=== PATIENT | female | born 1935 | race Caucasian/White ===

== ENCOUNTER → 2023-07-21 10:49 | Outpatient (REF) | payer MEDICARE, OTHER, SELFPAY ==
[2023-07-21 12:07] LABS: % Basophils 0.9 % (0-2); % Eosinophils 1.7 % (0-6); % Immature Granulocytes 0.4 % (0-0.5); % Lymphocytes 27.4 % (20.5-51.1); % Neutrophils 57.6 % (42.2-75.2); Absolute Basophils 0.1 10^3/uL (0-0.2); Absolute Eosinophils 0.1 10^3/uL (0-0.7); Absolute Lymphocytes 1.9 10^3/uL (1.2-3.4); Absolute Monocytes 0.8 10^3/uL (0.1-0.6); Hematocrit 40.8 % (37.0-47.0); Hemoglobin 14.1 g/dL (12.0-16.0); Mean Corp Hgb Conc. 34.6 g/dL (33.0-37.0); Mean Corpuscular Volume 95.6 fL (81.0-99.0); Mean Platelet Volume 10.8 fL (7.4-10.4); Nucleated Red Blood Cells % 0 %; Platelet Count 268 10^3/uL (130-400); Red Blood Cell Count 4.27 10^6/uL (4.20-5.40); White Blood Cell Count 6.9 10^3/uL (4.8-10.8)
[2023-07-21 12:44] LABS: ALT (SGPT) 27 U/L (0-35); AST (SGOT) 36 U/L (14-36); Albumin 4.3 g/dl (3.5-5.0); Alkaline Phosphatase 82 U/L (38-126); Blood Urea Nitrogen 16 mg/dl (7-17); Calcium 10.5 mg/dl (8.4-10.2); Carbon Dioxide 29 mmol/L (22-30); Chloride 102 mmol/L (98-107); Glucose 95 mg/dl (70-99); Potassium 4.5 mmol/L (3.5-5.1); Sodium 135 mmol/L (135-145); Total Bilirubin 0.6 mg/dl (0.2-1.3); Total Cholesterol 247 mg/dl (50-199); Total Protein 6.8 g/dl (6.3-8.2); Triglyceride 140 mg/dl (10-149); Very Low Density Lipoprotein 28 mg/dl (0-30); eGFR 54.87
[2023-07-21 12:54] LABS: HDL Cholesterol 117 mg/dl; LDL Cholesterol, Calculated 102 mg/dl
[2023-07-21 13:18] LABS: Free T4 1.32 ng/dl (0.78-2.19); Vitamin D, 25-OH*** 84.6 ng/mL (30-80)
[2023-07-21 13:31] LABS: TSH 3.33 uIU/ml (0.47-4.68)
[2023-07-21 14:08] LABS: Urine Albumin Negative (Neg - Trace); Urine Bilirubin Negative (Negative); Urine Character Clear (Clear); Urine Color Yellow; Urine Glucose Negative (Negative); Urine Ketone Negative (Negative); Urine Leukocyte Negative (Negative); Urine Nitrite Negative (Negative); Urine Occult Blood Negative (Negative); Urine Urobilinogen Negative (Neg - 1+)
== END ==
LOC: REG 10:49
PROVIDERS: ATTENDING PHYSICIAN Internal Medicine Geriatric Medicine
DX: E55.9 Vitamin D deficiency, unspecified (principal); E78.2 Mixed hyperlipidemia; E03.8 Other specified hypothyroidism; E21.3 Hyperparathyroidism, unspecified; M17.11 Unilateral primary osteoarthritis, right knee; G62.9 Polyneuropathy, unspecified; Z86.39 Personal history of other endocrine, nutritional and metabolic disease
CPT/HCPCS: 36415; 80053; 80061; 81003; 82306; 84439; 84443; 85025

== ENCOUNTER 2023-11-19 23:59 | Observation (INO) | payer MEDICARE, OTHER, SELFPAY ==
[2023-11-19 19:51] VITALS: BP 116/68
--- NOTE | 2023-11-19 20:22 | ED.GENMED ---
History of Present Illness
General
Chief Complaint: Change in Mental Status
Time Seen by Provider: 11/19/23 20:07
Travel History
Have you had any contact with someone who has COVID-19?: No
Do you have any symptoms of coronavirus? Fever > 100 degrees, chills, cough, shortness of breath, sore throat, loss of taste or smell, muscle aches, or headache?: No
History of Present Illness
History of Present Illness:
88-year-old female with history of neuropathy presents to the emergency department for evaluation of recurrent bouts of confusion that began yesterday. Patient and her state that they were traveling in [place] yesterday, while in the
hotel room the patient had a sudden onset of confusion, did not know her whereabouts of the events of the day. She did not ask repetitive questions and seemed to be able to be oriented by her with some degree of education. She seen normal
last night and this morning however again this afternoon had an abrupt period of confusion where she forgot certain life events, her whereabouts, and names of close friends. On arrival to the emergency department the symptoms appear to have fully
resolved. She denies any occultly speaking or difficulty word finding, denies any extremity weakness or new paresthesias.
Past History
Past History
ED Past Medical History: Other (chronic neuropathy right leg, under care of neurology study in [place].)
Social History
Tobacco: Non-smoker
Personal:
Living: with family
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
Review of Systems
Review of Systems
Allergies reviewed?: Yes
All Other Systems: ROS reviewed and negative except as documented in HPI and ROS
Phy Exam
Physical Exam
Physical Exam:
GEN: Well appearing, NAD, WDWN
HEENT: Oral mucosa moist, no scleral icterus, no nasal congestion
Cardiac: Regular rate
Lung: No respiratory distress, no tachypnea
MSK: No gross deformity or injuries
Skin: Good color, no pallor or jaundice, no rashes
Neuro: AO x3; CN II-XII grossly intact. BUE strength 5/5 in all patel, sensation intact and symmetric. BLE strength 5/5 in all patel, sensation intact and symmetric. Normal [id number] and rhzh-fg-[id number]. Appropriate memory and recall
Psych: Calm, cooperative
Course
Orders/Labs/Results
Orders:
Orders
11/19/23 20:21
CT Head W/o Iv Contrast Urgent
Comment:
Reason For Exam: mental status change
11/19/23 20:22
Electrocardiogram (*1) Urgent
Reason for Study: TIA/Stroke
EKG- Treatment ONCE
11/19/23 20:29
Complete Blood Count/With Diff Urgent
Comprehensive Metabolic Panel Urgent
11/19/23 21:28
Urinalysis Reflex To Culture Urgent
Date Specimen was Collected: 11/19/23
Time Specimen was Collected: 21:26
Urine Microscopic Reflex Cult Urgent
11/19/23 23:14
Aspirin 325 mg PO NOW STA
Abnormal Lab Results
11/19/23 11/19/23
20:29 21:28
RBC 4.03 L 10^6/uL
(4.20-5.40)
Hct 36.7 L %
(37.0-47.0)
MCH 32.5 H pg
(27.0-31.0)
Absolute Neuts (auto) 7.4 H 10^3/uL
(1.4-6.5)
Absolute Monos (auto) 1.2 H 10^3/uL
(0.1-0.6)
Lymphocytes % 14.2 L %
(20.5-51.1)
Monocytes % 11.4 H %
(1.7-9.3)
Sodium 134 L mmol/L
(135-145)
BUN 19 H mg/dl
(7-17)
Glucose 111 H mg/dl
(70-99)
Calcium 11.0 H mg/dl
(8.4-10.2)
Urine Ketones Trace A
(Negative)
Leukocyte Esterase Rfl Trace A
(Negative)
11/19/23 20:29
11/19/23 20:29
Vital Signs
Initial and Last Documented VS:
Initial Vital Signs
Pulse Resp BP Pulse Ox
60 22 116/68 100
11/19/23 19:51 11/19/23 19:51 11/19/23 19:51 11/19/23 19:51
Last Documented Vital Signs
Pulse Resp BP Pulse Ox
63 20 127/70 97
11/19/23 22:45 11/19/23 22:45 11/19/23 22:00 11/19/23 22:45
MDM/Problems Addressed
MDM/Problems Addressed:
88-year-old female presents with waxing waning periods of profound confusion. Per she has not had any signs of cognitive decline and these changes were rather sudden in nature. She did not have repetitive questioning and the symptoms did
not persist for 24 hours suggesting transient global amnesia is not a likely cause. She does endorse significant life stressors however given the waxing waning nature of this and her advanced age, coupled with findings of a chronic infarct on CT
scan, she will require further neurologic evaluation to definitively rule in or rule out CVA/TIA. Case was discussed with neurology who recommends loading dose of aspirin and admission for MRI
Comment
Comment:
EKG independently interpreted by me shows a normal sinus rhythm with a right bundle branch block, no ST changes suspicious for ischemia
*Critical Care Note
Total Time (30-74mins, 75-104mins- exclusive of procedures): Not Applicable
ED Attending Note
-
Portions of this chart may have been created with voice recognition software.� Occasional wrong word or��sound alike� substitutions may have occurred due to the inherent limitations of voice recognition software.
Discharge Plan
Departure
Patient Disposition: Admit
Date of Disposition: 11/19/23
Time of Disposition: 23:16
Admit to: Telemetry
Presentation/result/management discussed w/ accepting MD/DO: Hospitalist
Discharge Problem:
Transient ischemic attack (TIA)
Prescriptions:
No Action
No Current Medications
0
Referrals:
Kwan Lincoln MD [Family Provider] -
Interventions
Interventions:
*Risk Screen - Suicide Last Done: 11/19/23 19:51
*General Assessment Last Done: 11/19/23 20:32
*Neglect/Abuse Screening Last Done: 11/19/23 19:51
ED- Fall Risk Assessment Last Done: 11/19/23 20:31
*ED COVID-19 Vaccine History Last Done: 11/19/23 20:32
ED- Neurological Assessment Last Done: 11/19/23 20:32
ED Swallowing Screen Last Done: 11/19/23 23:15
Discharge Date and Time
Print Language: UPPER SORBIAN
[2023-11-19 20:31] VITALS: BMI 20.9
[2023-11-19 20:35] LABS: % Basophils 0.2 % (0-2); % Eosinophils 0.1 % (0-6); % Immature Granulocytes 0.3 % (0-0.5); % Lymphocytes 14.2 % (20.5-51.1); % Monocytes 11.4 % (1.7-9.3); % Neutrophils 73.8 % (42.2-75.2); Absolute Lymphocytes 1.4 10^3/uL (1.2-3.4); Absolute Monocytes 1.2 10^3/uL (0.1-0.6); Absolute Neutrophils 7.4 10^3/uL (1.4-6.5); Hematocrit 36.7 % (37.0-47.0); Hemoglobin 13.1 g/dL (12.0-16.0); Mean Corp Hgb Conc. 35.7 g/dL (33.0-37.0); Mean Corpuscular Hgb 32.5 pg (27.0-31.0); Mean Corpuscular Volume 91.1 fL (81.0-99.0); Mean Platelet Volume 9.6 fL (7.4-10.4); Nucleated Red Blood Cells % 0 %; Platelet Count 284 10^3/uL (130-400); Red Blood Cell Count 4.03 10^6/uL (4.20-5.40); Red Cell Dist. Width 12.6 % (11.5-14.5); White Blood Cell Count 10.1 10^3/uL (4.8-10.8)
[2023-11-19 20:50] LABS: ALT (SGPT) 26 U/L (0-35); AST (SGOT) 34 U/L (14-36); Albumin 4.3 g/dl (3.5-5.0); Alkaline Phosphatase 92 U/L (38-126); Blood Urea Nitrogen 19 mg/dl (7-17); Carbon Dioxide 26 mmol/L (22-30); Chloride 100 mmol/L (98-107); Estimated Creatinine Clearance 41 ml/min; Glucose 111 mg/dl (70-99); Potassium 4.4 mmol/L (3.5-5.1); Sodium 134 mmol/L (135-145); Total Bilirubin 0.5 mg/dl (0.2-1.3); eGFR > 60.00
[2023-11-19 21:35] LABS: Urine Albumin Trace (Neg - Trace); Urine Bilirubin Negative (Negative); Urine Character Clear (Clear); Urine Color Yellow; Urine Glucose Negative (Negative); Urine Ketone Trace (Negative); Urine Leukocyte Trace (Negative); Urine Nitrite Negative (Negative); Urine Occult Blood Negative (Negative); Urine Urobilinogen Negative (Neg - 1+)
[2023-11-19 21:40] VITALS: BP 124/61
[2023-11-19 21:46] LABS: Urine Red Blood Cell None Seen /HPF (0-2)
[2023-11-19 22:00] VITALS: BP 127/70
[2023-11-19 23:00] VITALS: BP 105/57
[2023-11-19] MEDS: ASPIRIN 325 MG PO (23:26)
--- NOTE | 2023-11-19 23:44 | HPS.HSE ---
Family Physician
-
Family Physician: Kwan Lincoln
Chief Complaint
-
TIA symptoms
History of Present Illness
88-year-old woman comes in for eval of recurrent bouts of confusion that began yesterday. This afternoon she had an abrupt period of confusion where she forgot certain life events, her whereabouts, and names of close friends. At the ED, her
symptoms appear to have fully resolved. She denies any current difficulty in speaking or difficulty word finding, denies any extremity weakness or new paresthesias. At the time of my interview she was at baseline.
Medical History
Past Medical History
Past Medical History: Reports Other
Additional Past Medical History:
chronic neuropathy right leg
Primary osteoarthritis of right knee
Peripheral neuropathy
Iliotibial band syndrome, right leg
Vitamin D deficiency, unspecified
Closed fracture of right tibial plateau, initial encounter
Other specified hypothyroidism
rochanteric bursitis, right hip
Tendinitis involving right hip abductors
Parathyroid hormone excess
Mixed hyperlipidemia
Past Surgical History: Reports None
Social History
Tobacco: Non-smoker
Alcohol: Occasional
Drug: None
Personal:
Living: With Family
Employment: Retired
Family History
Family History: Not pertinent
Allergies / Home Medications
Allergies reflects when Allergies were last updated in [facility].
Home Medications with original date entered in [facility]
Allergy/Medication List:
Allergies
Allergy/AdvReac Type Severity Reaction Status Date / Time
No Known Allergies Allergy Verified 11/19/23 19:56
Home Medications
No Meds [No Current Medications] 11/19/23
Review of Systems
-
History Source: Patient
A 12 point ROS was completed and negative except as noted: Yes
Physical Exam
Vital Signs
Vital Signs
Pulse Resp BP Pulse Ox
63 20 127/70 97
11/19/23 22:45 11/19/23 22:45 11/19/23 22:00 11/19/23 22:45
Physical Exam
General: Well Developed, Well Nourished, No Apparent Distress, Comfortable and Conversant
HEENT: NormoCephalic, Moist mucous membranes, Atraumatic, [place] Conjunctivae, Nose Appears Normal and Ears Appear Normal
Respiratory: Clear
Cardiac: S1/S2 and Regular Rhythm
GI: Soft, Non Tender and Non Distended
Musculoskeletal: No Clubbing, No Cyanosis and No Edema
Skin: Warm and Dry; No Rash or Jaundice
Neuro: Awake, Alert, Oriented and AO x 3
Psych: Calm
Laboratory Results
-
11/19/23 20:29
11/19/23 20:29
Laboratory Results
Total Bilirubin 0.5 mg/dl (0.2-1.3) 11/19/23 20:29
AST 34 U/L (14-36) 11/19/23 20:29
ALT 26 U/L (0-35) 11/19/23 20:29
Alkaline Phosphatase 92 U/L (38-126) 11/19/23 20:29
Data Reviewed
-
Lab Data: Labs Reviewed by me
Impression/Plan
-
IMPRESSION:
88 woman with probable TIA. 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 No acute intracranial abnormality. Mild hyponatremia of 134.
PLAN:
1. TIA - resolved
Workup per protocol
Neuro consult in am
2. Mild hyponatremia
encourage po intake
Recheck in am
Full code
VCD for DVTp
[2023-11-20] VITALS (8 sets, daily range): BP systolic 112–140; BP diastolic 58–79; PULSE 63; O2SAT 97; BMI 19.4
--- NOTE | 2023-11-20 03:50 | PTCARENOTE ---
Receive pt from ER. Pt alert oriented X3, forgetful at times. Pt assist X1 w/cane to her bed, unsteady. Pt oriented to the room, call collier within reach. at the bedside. Pt on NSR on telemonitor. VSS (T=97.8, HR=63, RR=18, EV=065/64, SpO2=98%
on RA). Pt NIH=0, stroke packet given. Bed alarm in place for pt safety. Will continue to monitor the pt.
[2023-11-20] MEDS: LOW STRENGTH ASPIRIN 81 MG PO (07:31)
--- NOTE | 2023-11-20 08:21 | CON.NEURO4 ---
Consultation - Neurology 4
-
CONSULTING PHYSICIAN: Benjamin Gomes
REFERRING PHYSICIAN: Hospitalist
DICTATED BY: Benjamin Gomes
DATE/TIME OF REQUEST: 11/20/23
DATE/TIME OF CONSULTATION: 11/20/23
Reason for Consultation: Concern for TIA, recurrent confusion
History of Present Illness:
The patient is an 88-year-old woman with a past med history significant only for idiopathic peripheral neuropathy presenting the hospital with short-term memory difficulties which seem to start abruptly on 11/17 in the morning.
Patient had been out in [place] and going to a health and neuropathy clinic which she generally goes to every couple of weeks and had been there for about a week when on Monday morning seem to develop abrupt confusion and short-term memory
difficulties which her witnessed. Patient did not feel like she could notice these memory difficulties but her at bedside, relates that she clearly had difficulty with memory and recent events which included the events of the week,
when their upcoming flight would be, and even had forgotten that a close family friend had passed in the past several weeks.
There was not any apparent auditory or visual hallucination and abnormal movements or loss of consciousness or unusual headaches. No instances like this before. Has been functioning quite well with regard to cognition. Appetite has been okay. No
recent illnesses or new medications.
Past Medical History: Hyperlipidemia, Peripheral neuropathy, Osteoarthritis, tendinitis of right hip
Surgical History: None
Family History: Reviewed and non-contributory
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
Allergies: No known drug allergies
Review of Symptoms:
Patient denies any fever, headache, chest pain, shortness of breath, GI or symptoms.
Physical Exam:
Elderly woman with no head or neck trauma no meningismus eyes are clear oropharynx is clear, neck supple, heart rate regular breathing unlabored abdomen soft nontender no lower extremity edema
Neurologic Examination:
The patient is awake, alert and oriented x 3. Patient obeys multistep commands repeats well names what was good comprehension and fluent speech with no evidence of aphasia. Subtraction from 100 by serial sevens is adequate. Can recall recent
current events of [place] conflict. Knows the current month and able to recall the most recent hol day with some prompting. No evidence of. Copy the cube well and draws a clock very normally.On cranial nerve assessment,
pupils are 3 mm bilateral, round and reactive to light and accommodation. Visual patel are full. Extraocular movements are intact. Facial sensations are intact and bilaterally symmetrical, there is no facial asymmetry. Hearing is intact bilaterally
to normal conversation volume. Tongue palate and uvula are midline. Sternocleidomastoid strengths are full bilaterally. Motor strengths are 5/5 bilateral upper and lower extremities on medical research [place] scale. There is no drift or
involuntary movement noted. Deep tendon reflexes are 2+ bilateral upper and lower extremities and Babinski is absent bilaterally. Sensations of pain, touch, temperature and vibration are intact and bilaterally symmetrical. There was no extinction
noted on double simultaneous stimulation. Coordination is intact by finger to nose bilaterally.
Neuro Imaging:
MRI brain shows a significant amount of ischemic white matter vascular disease without clear lacunar infarct, age related global atrophy, no acute infarct or hemorrhage masses no hydrocephalus
Impressions
1. Suspect this is the earliest development of mild cognitive impairment manifesting with short-term memory difficulty. MRI brain is suggestive of possibility for vascular based cognitive impairment. Duration of symptoms would argue against a
transient global amnesia but this would remain a possibility which would resolve spontaneously and should have a benign course. Patient had also had travel to [place] which makes me wonder if some element of Jet lag played a role here in a
patient with pre-existing mild cognitive impairment. EEG did not suggest nonconvulsive seizure as a cause of her symptoms. Diagnosis of exclusion would be stress or mood based problems that I feel is probably unlikely. Lack of headache, fever,
leukocytosis and normal level of consciousness and fairly good insight and cognitive testing today for short-term memory difficulties would argue against a [employer] infection
2.
3.
4.
Recommendations:
1. Check vitamin B12
2. Start aspirin 81 mg daily and Simvastatin 10 mg daily for vascular health of the brain
3. Would follow up with neurology as outpatient with neuropsychologic testing, consideration for Donepezil and/or Memantine later on
4. No indication for starting anti-seizure medications
Discussed patient care with: Patient and her , hospitalist
--- NOTE | 2023-11-20 09:22 | W.PN.HOSP.TC ---
Today's Communication/Plan
-
Discharge today
Assessment / Plan
Assessment / Plan
Physical Exam
General: Not in acute distress
HEENT: Normocephalic
Respiratory: Clear
Cardiac: S1/S2 and Regular Rhythm
GI: Soft, Non Tender and Non Distended
Musculoskeletal: No Clubbing, No Cyanosis and No Edema
Skin: Warm and Dry; No Rash or Jaundice
Neuro: Awake, Alert, Oriented and AO x 3. Cranial nerves 2 through 12 grossly intact bilaterally. Strength and sensation grossly intact bilaterally.
Psych: Calm

Assessment/Plan
IMPRESSION:
-88 woman with possibility for vascular based cognitive impairment, possible (but less likely to be) transient global amnesia
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 No acute intracranial abnormality. Mild hyponatremia of 134.
-MRI brain showed a significant amount of ischemic white matter vascular disease without clear lacunar infarct, age related global atrophy, no acute infarct or hemorrhage masses no hydrocephalus
-Neurology consulted, recommendations appreciated
-EEG unremarkable
-Continue aspirin 81 mg daily and simvastatin 10 mg daily
-Follow-up hospital Vitamin B12 level and supplement as needed
-Follow-up with neurology outpatient
Mild hyponatremia -- recheck CBC, BMP and Magnesium with PCP in the next 2 to 3 days
Hyperlipidemia
Peripheral neuropathy
Osteoarthritis
Tendinitis of right hip
Full code
VCD for DVTp
More than 30 minutes spent in discharge including
Final examination of the patient
Summarizing hospital stay
Instructions for continuing care to all relevant caregivers
Preparation of discharge records, prescriptions, and referral forms
Total time spent (in minutes): 42
Anticipated Discharge: Today
Subjective/Interval History
-
Date of Service: November 20, 2023
Patient was seen and examined. She denied any new symptoms or complaints.
Objective Data
-
Vital Signs:
Vital Signs
Temp Pulse Resp BP Pulse Ox
98.4 F 62 18 132/68 99
11/20/23 07:27 11/20/23 07:27 11/20/23 07:27 11/20/23 07:27 11/20/23 07:44
[2023-11-20 09:24] LABS: HDL Cholesterol 93 mg/dl; LDL Cholesterol, Calculated 134 mg/dl; Total Cholesterol 241 mg/dl (50-199); Triglyceride 71 mg/dl (10-149); Very Low Density Lipoprotein 14 mg/dl (0-30)
--- NOTE | 2023-11-20 10:45 | PTOTSP ---
SPEECH THERAPY SWALLOW EVALUATION:
Patient exhibits oropharyngeal swallow grossly WFL at this time. Swallow therapy is not indicated at this time. Recommend Regular texture diet, thin liquids. Meds whole with liquid. General aspiration precautions. Speech therapy to follow for
complete speech/language/cognitive communication evaluation at a later time pending MRI results.
RECOMMEND:
1) Regular texture diet, thin liquids
2) Meds whole with liquid
3) General aspiration precautions
4) Speech therapy to follow for complete speech/language/cognitive communication evaluation
--- NOTE | 2023-11-20 15:02 | CM ---
Patient seen bedside with spouse, initial assessment completed. Patient resides with her spouse in a multiple story home, five steps to enter. Patient has a cane at home, denies VN or SNF. Patient confirms PCP Dr. Lincoln, pharmacy [facility] [place]
on [address] Patient confirms prescription coverage, denies food insecurities at home. CM discussed PT recommendations of outpatient therapy. Patient reports she is very busy, is on the elliptical about three times a week, declines outpatient PT at
this time. [facility] form reviewed, signed, placed in chart. CM will continue to follow for discharge planning needs.
Plan; home with spouse, no needs.
--- NOTE | 2023-11-20 16:11 | EEG.RPT ---
Electroencephalogram Report
Recording
Date of EE11/20/23
Length of EEG recordin minutes
Recording Conditions: Awake and Drowsy
Hyperventilation Performed: No
Photic Stimulation Performed: Yes
Report
GREATER THAN 1 HOUR EEG INTERPRETATION:
Unremarkable EEG for age
CLINICAL CORRELATION:
A normal EEG does not rule out a diagnosis of epilepsy.� If clinical suspicion for seizure persists, a prolonged recording may be warranted.
Clinical correlation is advised.
METHODS:
A 21 channel digitized electroencephalogram (EEG) was performed using the 10/20 international system of electrode placement and one-lead of ECG recorded.
ELECTROENCEPHALOGRAPHER IMPRESSION(S):
Quality of study
Good
Background
There was an unremarkable anterior-posterior voltage gradient of alpha frequency.
With eye opening the background activity changed to a low voltage mixture of frequencies.
There were no significant asymmetries of background activity noted.
Sleep
Drowsiness present
Photic Stimulation
No activation
ECG
Normal sinus rhythm
--- NOTE | 2023-11-20 16:47 | W.DS.TRANS ---
DC Summary - Bike Technician
-
Discharge Instructions:
Discharge Diagnosis/Procedures Possibility for vascular based cognitive
impairment versus possible (but less likely to
be) transient global amnesia
Mild hyponatremia
Hyperlipidemia
Peripheral neuropathy
Osteoarthritis
Tendinitis of right hip
Diet As tolerated
Activity As tolerated
Driving Restrictions No driving
Blood Work Recheck CBC, BMP, Calcium and Albumin and
Magnesium with your primary care provider's
office in the next 2 to 3 days
Instructions:
Stand-Alone Forms:
Changes to Home Medications: Yes
Discharge Medications:
DC Medications w/original date entered in doo
aspirin 81 mg chewable tablet 81 mg PO DAILY #30 tabs 11/20/23
simvastatin 10 mg tablet 10 mg PO DAILY #30 tabs 11/20/23
Home Medication Changes
Aspirin and Simvastatin are new medications.
Pending Results: Yes
Additional Pending Results:
Vitamin B12 level
Total time spent discharging patient (in min): 42
[2023-11-20 17:26] LABS: Vitamin B12 861 pg/ml (239-931)
--- NOTE | 2023-11-23 10:16 | W.DCSUMMARY ---
Discharge Summary
Discharge Data
Date of Admission: 11/19/23
Date of Discharge: 11/20/23
Total time spent discharging patient (in min): 42
-
Pending Results: Yes
Additional Pending Results:
Vitamin B12 level
Hospital Course
88 y/o female who was admitted with worsening short-term memory and confusion, with confusion resolving shortly after presentation to the hospital. Neurology was consulted and MRI brain was done which showed a significant amount of ischemic white
matter vascular disease without clear lacunar infarct, age related global atrophy, no acute infarct or hemorrhage masses no hydrocephalus. Neurology suspected that this is the earliest development of mild cognitive impairment manifesting with
short-term memory difficulty but given MRI brain results it was possible for a vascular-based cognitive impairment, it was also possible (but less likely) patient could have transient global amnesia but but would resolve spontaneously and should
have a benign course. Jet lag given her recent travel was also possible contributor. EEG did not show a nonconvulsive seizure as the cause of her symptoms. Central nervous system infection was unlikely. She was stable for discharge.
Discharge Plan
-
Patient Disposition: Home (Routine Discharge)
Discharge Diagnosis/Procedures: Possibility for vascular based cognitive impairment versus possible (but less likely to be) transient global amnesia
Mild hyponatremia
Hyperlipidemia
Peripheral neuropathy
Osteoarthritis
Tendinitis of right hip
Diet: As tolerated
Activity: As tolerated
Driving Restrictions: No driving
Blood Work: Recheck CBC, BMP, Calcium and Albumin and Magnesium with your primary care provider's office in the next 2 to 3 days
Activity Restrictions/Additional Instructions:
Recheck CBC, BMP, Calcium, Albumin and and Magnesium levels with your primary care provider's office in the next 2 to 3 days
Vitamin B12 level was ordered in the hospital -- please follow-up on those results and have your primary care provider start Vitamin B12 supplementation if needed
Referrals:
Alf Tirado MD [Active] - in three to four weeks (Hospital vascular cognitive impairment follow-up)
Kwan Lincoln MD [Family Provider] - in one to two days
Prescriptions:
New
aspirin 81 mg Tablet,Chewable
81 mg PO DAILY Qty: 30 1RF
simvastatin 10 mg tablet
10 mg PO DAILY Qty: 30 1RF
Discharge Orders:
Discharge Patient (As Directed); Ordered 11/20/23
Ordered By: William Iglesias
Discharge Date and Time
Discharge Date/Time: 11/20/23 18:06
Print Language: GERMAN
== END 2023-11-20 18:06 | disposition home or self-care (01) ==
LOC: 4 EAST ACU 23:59
PROVIDERS: Physician Assistant; ADMITTING PHYSICIAN Internal Medicine; ATTENDING PHYSICIAN Hospitalist; EMERGENCY PHYSICIAN Emergency Medicine; FAMILY PHYSICIAN Internal Medicine Geriatric Medicine; OTHER PHYSICIAN Student in an Organized Health Care Education/Training Program
DX: G31.84 Mild cognitive impairment of uncertain or unknown etiology (principal); G62.9 Polyneuropathy, unspecified; E78.2 Mixed hyperlipidemia; M17.11 Unilateral primary osteoarthritis, right knee; E55.9 Vitamin D deficiency, unspecified; M76.31 Iliotibial band syndrome, right leg; E03.8 Other specified hypothyroidism; E78.5 Hyperlipidemia, unspecified; I08.3 Combined rheumatic disorders of mitral, aortic and tricuspid valves; M76.9 Unspecified enthesopathy, lower limb, excluding foot; E87.1 Hypo-osmolality and hyponatremia; G60.9 Hereditary and idiopathic neuropathy, unspecified; Z86.73 Personal history of transient ischemic attack (TIA), and cerebral infarction without residual deficits
CPT/HCPCS: 70450; 70551; 80053; 80061; 81003; 81015; 82607; 85025; 92610; 93005; 93306; 93880; 95816; 97162; 97166; 99285; G0378

== ENCOUNTER → 2023-11-23 11:26 | Outpatient (REF) | payer MEDICARE, OTHER, SELFPAY ==
[2023-11-23 12:09] LABS: % Basophils 0.5 % (0-2); % Eosinophils 1.6 % (0-6); % Immature Granulocytes 0.3 % (0-0.5); % Lymphocytes 25.2 % (20.5-51.1); % Monocytes 12.8 % (1.7-9.3); % Neutrophils 59.6 % (42.2-75.2); Absolute Eosinophils 0.1 10^3/uL (0-0.7); Absolute Lymphocytes 1.9 10^3/uL (1.2-3.4); Absolute Monocytes 0.9 10^3/uL (0.1-0.6); Absolute Neutrophils 4.4 10^3/uL (1.4-6.5); Hematocrit 39.1 % (37.0-47.0); Hemoglobin 13.4 g/dL (12.0-16.0); Mean Corp Hgb Conc. 34.3 g/dL (33.0-37.0); Mean Corpuscular Hgb 33.9 pg (27.0-31.0); Mean Platelet Volume 10.2 fL (7.4-10.4); Nucleated Red Blood Cells % 0 %; Platelet Count 302 10^3/uL (130-400); Red Blood Cell Count 3.95 10^6/uL (4.20-5.40); Red Cell Dist. Width 12.6 % (11.5-14.5); White Blood Cell Count 7.4 10^3/uL (4.8-10.8)
[2023-11-23 12:58] LABS: ALT (SGPT) 21 U/L (0-35); AST (SGOT) 28 U/L (14-36); Albumin 3.9 g/dl (3.5-5.0); Alkaline Phosphatase 78 U/L (38-126); Blood Urea Nitrogen 15 mg/dl (7-17); Calcium 10.3 mg/dl (8.4-10.2); Carbon Dioxide 29 mmol/L (22-30); Chloride 103 mmol/L (98-107); Glucose 98 mg/dl (70-99); HDL Cholesterol 93 mg/dl; LDL Cholesterol, Calculated 109 mg/dl; Magnesium 2.2 mg/dl (1.6-2.3); Potassium 4.4 mmol/L (3.5-5.1); Sodium 137 mmol/L (135-145); Total Bilirubin 0.7 mg/dl (0.2-1.3); Total Cholesterol 222 mg/dl (50-199); Total Protein 6.3 g/dl (6.3-8.2); Triglyceride 101 mg/dl (10-149); Very Low Density Lipoprotein 20 mg/dl (0-30); eGFR > 60.00
[2023-11-23 15:50] LABS: Lyme Antibody Screen, EIA Negative (Negative)
[2023-11-24 13:36] LABS: Folate > 20.0 ng/ml (2.76-20)
== END ==
LOC: RAD 11:26
PROVIDERS: ATTENDING PHYSICIAN Nurse Practitioner Family
DX: Z09 Encounter for follow-up examination after completed treatment for conditions other than malignant neoplasm (principal); R41.0 Disorientation, unspecified; G45.9 Transient cerebral ischemic attack, unspecified; Z79.899 Other long term (current) drug therapy
CPT/HCPCS: 36415; 80053; 80061; 82746; 83735; 85025; 86618

== ENCOUNTER 2024-01-25 12:22 | Outpatient (RCR) | payer MEDICARE, OTHER, SELFPAY | END 2024-02-02 08:10 | disposition home or self-care (01) | LOC: ROT 12:22 | PROVIDERS: ATTENDING PHYSICIAN Psychiatry & Neurology Neurology; FAMILY PHYSICIAN Internal Medicine Geriatric Medicine | DX: G93.40 Encephalopathy, unspecified (principal); G31.84 Mild cognitive impairment of uncertain or unknown etiology; Z73.6 Limitation of activities due to disability | CPT/HCPCS: 97167; 97530 ==

== ENCOUNTER 2024-02-09 11:15 | Emergency (ER) | payer MEDICARE, BC, SELFPAY ==
[2024-02-09 11:19] VITALS: BP 119/57
--- NOTE | 2024-02-09 11:41 | ED.GENMED ---
History of Present Illness
General
Chief Complaint: Fall
Source: patient
Exam Limitations: none
Time Seen by Provider: 02/09/24 11:40
Nursing documentation reviewed up to this point in time: agreed with
History of Present Illness
History of Present Illness:
This is a 88 y/o female with a PMH of hyperlipidemia, osteoarthritis, presenting to the emergency department today with concerns of right knee pain following a fall. Patient states that she was in her bathroom yesterday walking when she slipped and
fell forward. Patient fell forward and grabbed onto the sink which helped slow her fall. Patient states that she fell onto her right knee. Patient was able to get up okay after the fall and she thought nothing of it. She did not hit her head or
injure her neck. She has no neck pain. She denies any other injuries. Patient states that she was able to walk okay but then did notice some pain in her right knee when weightbearing. Patient states that it became increasingly difficult for her
to bear weight on that side and she feels a bit unsteady on her feet. Patient denies any dizziness or lightheadedness prior to the fall, she has no chest pain or shortness of breath. Patient states that she will occasionally feel a popping in her
knee with walking. Patient denies swelling in her knee. Patient does not take a blood thinner.
Past History
Past History
ED Past Medical History: Other (chronic neuropathy right leg, under care of neurology study in [place].)
Social History
Tobacco: Non-smoker
Personal:
Living: with family
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
Review of Systems
Review of Systems
All Other Systems: ROS reviewed and negative except as documented in HPI and ROS
Phy Exam
Physical Exam
Physical Exam:
General: Patient is well appearing and in no acute distress; non-toxic
Skin: Warm and dry, no rashes or lesions
Head: Normocephalic, atraumatic
Eyes: Sclera non-icteric. EOMs intact. PERRLA.
Neck: No tenderness to palpation of the cervical spine.
Cardiac: Regular rate
Peripheral Vascular: No lower extremity swelling or edema, 2+ dorsalis pedis pulses bilaterally
Pulm: Normal respiratory effort
Musculoskeletal: Full range of motion of bilateral upper and lower extremities. No suprapatellar swelling. Negative Carolyn's sign, negative chuyita's.
Neuro: CN II-XII intact, no focal neurologic deficits. 5 of 5 strength in bilateral upper and lower extremities.
Psychiatric: Appropriate mood and affect.
Course
Orders/Labs/Results
Orders:
Orders
02/09/24 11:51
CR Knee- Right 4 Or More View* Urgent
Comment:
Reason For Exam: knee pain s/p fall
02/09/24 12:15
Pt Eval And Treat Urgent
Activity Level: As Tolerated
02/09/24 12:52
Knee Immobilizer Right-Treatme ONCE
Vital Signs
Initial and Last Documented VS:
Initial Vital Signs
Temp Pulse Resp BP Pulse Ox
98.1 F 80 18 119/57 98
02/09/24 11:19 02/09/24 11:19 02/09/24 11:19 02/09/24 11:19 02/09/24 11:19
Last Documented Vital Signs
Temp Pulse Resp BP Pulse Ox
98.1 F 80 18 119/57 98
02/09/24 11:19 02/09/24 11:19 02/09/24 11:19 02/09/24 11:19 02/09/24 11:19
MDM/Problems Addressed
Differential Diagnosis Includes:
ddx include tibial plateau fracture, suprapatellar tendonitis, musculoskeletal sprain/strain, contusion
MDM/Problems Addressed:
Knee pain:
This is a 88 y/o female with a PMH of hyperlipidemia, osteoarthritis, presenting to the emergency department today with concerns of right knee pain following a fall. Patient states that she was in her bathroom yesterday walking when she slipped and
fell forward. Patient fell forward and grabbed onto the sink which helped slow her fall. Patient states that she fell onto her right knee. Patient was able to get up okay after the fall and she thought nothing of it. She did not hit her head or
injure her neck. Patient is able to bear weight but with some discomfort and pain, she notices some popping. On exam, she is well-appearing, she has no swelling in her knee, no signs of head trauma, no tenderness palpation of the cervical spine,
she no ligamentous instability of the knee. The x-ray showed no acute osseous abnormality of the knee. Suspect she has a ligamentous or muscular injury. She was evaluated by physical therapy who gave patient tips for safely ambulating, patient
will have a rolling walker for home use. Patient was given a knee immobilizer for stability when walking. Patient stable for discharge
Chronic conditions affecting care:
n/a
Acute Exacerbation and/or Progression of Chronic Illness:
n/a
*Pulse Oximetry
Patient hypoxic: no
*Critical Care Note
Total Time (30-74mins, 75-104mins- exclusive of procedures): Not Applicable
Data Reviewed
Review of Other/Old Records Reveals: Discharge Summary (Reviewed discharge summary from 11/23/2023 patient was seen for worsening short-term memory and confusion, and was diagnosed with possible vascular dementia)
Source: patient, records and family
Prescriptions/Medications Considered But Not Given:
Considered medication for pain but patient has no pain at this time
Patient Management
Escalation/DeEscalation of care consider admission/obs:
Patient stable for discharge. Reviewed case with my attending.
ED Attending Note
-
Portions of this chart may have been created with voice recognition software.� Occasional wrong word or��sound alike� substitutions may have occurred due to the inherent limitations of voice recognition software.
Discharge Plan
Departure
Patient Disposition: Home (Routine Discharge)
Date of Disposition: 02/09/24
Time of Disposition: 13:33
Patient with high blood pressure during this ER visit?: No
Condition: Good
Discharge Problem:
Knee pain, Fall
Instructions: Preventing falls in adults, Knee Pain ED
Prescriptions:
No Action
aspirin 81 mg Tablet,Chewable
81 mg PO DAILY Qty: 30 1RF
simvastatin 10 mg tablet
10 mg PO DAILY Qty: 30 1RF
Referrals:
Lobo Patterson MD [Active] - Call in 1-3 days for appt
Kwan Lincoln MD [Family Provider] -
Activity Restrictions/Additional Instructions:
Please use your knee immobilizer when ambulating. You can wear it for the next few days. When at rest, you can keep the knee elevated and keep it iced.
Please call the attached number to schedule an appointment for Dr. Weston's office, a knee specialist.
Please return emergency department should you develop further inability to ambulate, recurrent falls, chest pain, shortness of breath, weakness one-sided body versus other, difficulty speaking, or any other signs or symptoms concerning to you.
Interventions
Interventions:
*Risk Screen - Suicide Last Done: 02/09/24 12:13
*General Assessment Last Done: 02/09/24 13:59
*Neglect/Abuse Screening Last Done: 02/09/24 12:13
*Nursing Disposition Last Done: 02/09/24 13:59
ED-Musculoskeletal Assessment Last Done: 02/09/24 11:50
ED- Neurological Assessment Last Done: 02/09/24 11:50
ED-Skin Assessment Last Done: 02/09/24 11:50
Discharge Date and Time
Discharge Date/Time: 02/09/24 13:59
Print Language: GREENLANDIC
== END 2024-02-09 13:59 | disposition home or self-care (01) ==
LOC: EMR 11:15
PROVIDERS: EMERGENCY PHYSICIAN Student in an Organized Health Care Education/Training Program; FAMILY PHYSICIAN Internal Medicine Geriatric Medicine
DX: S89.91XA Unspecified injury of right lower leg, initial encounter (principal); M25.561 Pain in right knee; R26.81 Unsteadiness on feet; W01.0XXA Fall on same level from slipping, tripping and stumbling without subsequent striking against object, initial encounter; E78.5 Hyperlipidemia, unspecified; M19.90 Unspecified osteoarthritis, unspecified site; G62.9 Polyneuropathy, unspecified
CPT/HCPCS: 99283; 29505; 73564

== ENCOUNTER → 2024-07-05 15:27 | Outpatient (REF) | payer MEDICARE, BC, SELFPAY ==
[2024-07-05 16:31] LABS: ALT (SGPT) 23 U/L (0-35); AST (SGOT) 33 U/L (14-36); Albumin 4.7 g/dl (3.5-5.0); Alkaline Phosphatase 78 U/L (38-126); Blood Urea Nitrogen 13 mg/dl (7-17); Calcium 10.6 mg/dl (8.4-10.2); Carbon Dioxide 29 mmol/L (22-30); Chloride 101 mmol/L (98-107); Glucose 83 mg/dl (70-99); Potassium 4.8 mmol/L (3.5-5.1); Sodium 138 mmol/L (135-145); Total Bilirubin 1.1 mg/dl (0.2-1.3); Total Protein 7.3 g/dl (6.3-8.2); eGFR 54.53
[2024-07-05 16:47] LABS: Intact PTH 105.6 pg/ml (13.6-85.8)
== END ==
LOC: REG 15:27
PROVIDERS: ATTENDING PHYSICIAN Internal Medicine Endocrinology, Diabetes & Metabolism; FAMILY PHYSICIAN Internal Medicine Geriatric Medicine
DX: E21.0 Primary hyperparathyroidism (principal)
CPT/HCPCS: 36415; 80053; 83970

== ENCOUNTER → 2024-10-03 09:53 | Outpatient (REF) | payer MEDICARE, BC, SELFPAY | LOC: RAD 09:53 | PROVIDERS: ATTENDING PHYSICIAN Internal Medicine Endocrinology, Diabetes & Metabolism; FAMILY PHYSICIAN Internal Medicine Geriatric Medicine | DX: M81.0 Age-related osteoporosis without current pathological fracture (principal) | CPT/HCPCS: 77080 ==

== ENCOUNTER 2024-10-29 22:11 | Inpatient (IN) | payer MEDICARE, BC, SELFPAY ==
[2024-10-29] VITALS (23 sets, daily range): BP systolic 47–107; BP diastolic 35–91; PULSE 93–120; BMI 19.8
--- NOTE | 2024-10-29 18:35 | ED.GENMED ---
History of Present Illness
<Jennifer Anguiano PA-C - Last Filed: 10/30/24 04:12>
General
Chief Complaint: Weakness
Source: patient
Exam Limitations: none
Time Seen by Provider: 10/29/24 17:58
Nursing documentation reviewed up to this point in time: agreed with
History of Present Illness
History of Present Illness:
Patient is an 89-year-old female who presents to the emergency department via EMS for evaluation of weakness. Patient reports feeling generally weak over the past few days which is different from her baseline. Patient notes that she was struggling
with constipation approximately 3 days ago for which she treated with MiraLAX at home. She has since had frequent bowel movements. She states these have been darker in color although denies any hematochezia. She states they have been loose but
not diarrhea.
Patient did suffer a fall in early October where she sustained a fracture of her right hip and was briefly receiving care in an acute rehab facility in [place]. Since returning home she has been seen by visiting nurses, along with occupational
therapy. Today�visiting nurse found patient to be hypotensive at home prompting 911 call.
Patient denies any chest pain or shortness of breath. No fevers, chills, urinary symptoms, or abdominal pain. No nausea or vomiting.
Past History
<Jennifer Anguiano PA-C - Last Filed: 10/30/24 04:12>
Past History
ED Past Medical History: Other (chronic neuropathy right leg, under care of neurology study in [place].)
Social History
Tobacco: Non-smoker
Personal:
Living: with family
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
Review of Systems
<Jennifer Anguiano PA-C - Last Filed: 10/30/24 04:12>
Review of Systems
Allergies reviewed?: Yes
All Other Systems: ROS reviewed and negative except as documented in HPI and ROS
Phy Exam
<Jennifer Anguiano PA-C - Last Filed: 10/30/24 04:12>
Physical Exam
Physical Exam:
Vitals: Mildly tachycardic, otherwise vital signs stable on arrival. Afebrile
General: Patient is in no apparent distress
Skin: Pale no rashes or lesions
Head: Normocephalic, atraumatic
Eyes: Sclera nonicteric.
Throat: Protecting airway
Neck: Normal ROM, no cervical spine tenderness, no meningismus
Cardiac: Regular rate and rhythm, no murmurs.
Pulm: Normal respiratory effort, no wheezes, rales, rhonchi heard on exam
.
Abdomen: Abdomen soft and nontender.
Rectal: Melanous stool, heme positive
Extremities: No evidence of cyanosis or edema. Well-healing surgical scar of right hip without surrounding erythema
Neuro: AAOx3. No focal neurologic deficits
Psychiatric: Normal affect.
Course
<Jennifer Anguiano PA-C - Last Filed: 10/30/24 04:12>
Orders/Labs/Results
Orders:
Orders
10/29/24 Dinner
NPO
Allow oral meds: Yes
Allow clear liquids: No
NPO with Ice Chips: Yes
10/29/24 18:19
Electrocardiogram (*1) Urgent
Reason for Study: Fatigue / Weakness
EKG- Treatment ONCE
10/29/24 18:21
Orthostatic VS- Treatment ONCE
10/29/24 18:32
Complete Blood Count/With Diff Urgent
Comprehensive Metabolic Panel Urgent
10/29/24 18:53
COVID-19 Antigen Urgent
Influenza A+B Rapid Molecular Urgent
KENDRICK Source: [facility]
Specimen Description:
10/29/24 19:23
Urinalysis Reflex To Culture Urgent
Date Specimen was Collected: 10/29/24
Time Specimen was Collected: 19:22
10/29/24 19:35
Pantoprazole [Protonix IV] 80 mg IV NOW STA
10/29/24 19:46
Sterile Water [Sterile Water For Injection] 20 ml .ROUTE .STK-MED
10/29/24 19:50
Type And Crossmatch [Type+Screen] Urgent
10/29/24 19:59
Blood Bank Products [* Blood Bank Products] Urgent
Blood Bank Products: *Packed RBC Leuko(PRBC's)
Quantity: 1
Transfuse Today: Yes
Reason: Anemia
10/29/24 20:13
Emergent Blood Release Stat
Blood Bank Products: *Packed RBC Leuko(PRBC's)
Quantity: 1
Reason: Bleeding
A Blood Permit is Required for all Blood.
FOR LAB PICKUP:
Take order sheet to Blood Bank to strip picker blood products in validated cooler
Immediately return to patient care area.
Blood products released by
Blood Products picked up by
Sent to
Date and Time
10/29/24 20:25
ABO2 Stat
BBK Wristband Number:
Associate notified that ABO2 has been ordered: [id number]
Date: 10/29/24
Time: 20:17
Air Conditioning Insulation Installer ID: [id number]
10/29/24 21:13
* Blood Bank Products Urgent
Blood Bank Products: *Packed RBC Leuko(PRBC's)
Quantity: 1
Transfuse Today: Yes
Reason: Bleeding
10/29/24 21:25
Acetaminophen 1000MG/100Ml [Ofirmev] 1,000 mg in 100 ml IV ONCE
Acetaminophen IV Indication:: ED Narcotic Naive Pt-ONCE
10/29/24 21:28
Admit/Transfer Patient As Directed
Co-Sign Provider:
Level of Care: Inpatient admission
Assign to:: IMU- Intermediate Care
Physician / Group: Justa Ambriz
Diagnosis: Anemia, GI bleed
Reason for Hospitalization: Anemia, GI bleed
Expected length of stay greater than two midnights?: Yes
ELOS- Estimated Length of Stay in days: 3
I certify the patient meets the requirements for IP care: Yes
PRN Pain Medication Management As Directed
May give lesser potent ordered pain med per pt: Yes
preference::
Protocol:: Medication orders for pain may be administered in a
manner that supports deferring to patient preference
when the pt is:
- Requesting an ordered lesser potent pain medication.
Least to most potent pain medications are defined
as: acetaminophen < NSAID < tramadol < opioids
(morphine, oxycodone, hydromorphone).
- Requesting a lesser dose of the same medication IF
ORDERED.
- Requesting a less intrusive route of administration
if both routes are prescribed by the provider (PO <
IV).
10/29/24 21:30
Pantoprazole 80 mg/100 ml Nss [Protonix] 80 mg in 100 ml IV Q10H
10/29/24 21:31
Code Status As Directed
Resuscitation Status: Full Code
10/29/24 21:33
0.9% Sodium Chloride 1000 ml [Nss] 1,000 ml IV BOLUS
10/29/24 22:00
Flush (0.9% Sodium Chloride) [Flush (Nss)] See Dose Instructions IV PER PROTOCOL
10/29/24 22:18
GASTROINTESTINAL CONSULT Routine
Consulting Provider: Jess Atkins
Was physician already notified: Yes
Activity As Directed
Activity Level: With Assistance
INT (Intravenous Needle Therapy) As Directed
Comment: Place 2 IV catheters of the largest bore possible until stable
Orthostatic Vital Signs As Directed
Orthostatic VS Frequency: Now
Comment: then every four hours for twenty-four hours
Pneumatic Compression Sleeves As Directed
Type: Knee high
Vital Signs As Directed
Frequency: Per unit guidelines
DX Deep Vein Thrombosis Video Routine
10/29/24 23:00
Latanoprost [Xalatan Ophthalmic Solution] See Dose Instructions BOTH EYES HS
10/30/24 06:00
Basic Metabolic Panel IN AM
Complete Blood Count/No Diff IN AM
10/30/24 08:00
Atorvastatin [Lipitor] 10 mg PO DAILY
Multivitamin [Theragran] 1 tablet PO DAILY
Abnormal Lab Results
10/29/24 10/29/24
18:32 19:50
RBC 2.27 L 10^6/uL
(4.20-5.40)
Hgb 7.3 L g/dL
(12.0-16.0)
Hct 21.7 L %
(37.0-47.0)
MCH 32.2 H pg
(27.0-31.0)
MPV 10.7 H fL
(7.4-10.4)
Absolute Neuts (auto) 7.4 H 10^3/uL
(1.4-6.5)
Neutrophils % 79.2 H %
(42.2-75.2)
Lymphocytes % 13.3 L %
(20.5-51.1)
BUN 45 H mg/dl
(7-17)
Glucose 107 H mg/dl
(70-99)
Calcium 10.4 H mg/dl
(8.4-10.2)
Total Protein 5.5 L g/dl
(6.3-8.2)
Crossmatch IS Only See Detail
10/29/24 18:32
10/29/24 18:32
Vital Signs
Initial and Last Documented VS:
Initial Vital Signs
BP
107/69
10/29/24 17:54
Last Documented Vital Signs
Temp Pulse Resp BP Pulse Ox
98.9 F 75 15 101/54 97
10/30/24 02:06 10/30/24 02:06 10/30/24 02:06 10/30/24 02:06 10/30/24 02:06
<Giovanny Martin MD - Last Filed: 10/29/24 20:39>
Orders/Labs/Results
Orders:
Orders
10/29/24 Dinner
NPO
Allow oral meds: Yes
Allow clear liquids: No
NPO with Ice Chips: Yes
10/29/24 18:19
Electrocardiogram (*1) Urgent
Reason for Study: Fatigue / Weakness
EKG- Treatment ONCE
10/29/24 18:21
Orthostatic VS- Treatment ONCE
10/29/24 18:32
Complete Blood Count/With Diff Urgent
Comprehensive Metabolic Panel Urgent
10/29/24 18:53
COVID-19 Antigen Urgent
Influenza A+B Rapid Molecular Urgent
[facility]
Specimen Description:
10/29/24 19:23
Urinalysis Reflex To Culture Urgent
Date Specimen was Collected: 10/29/24
Time Specimen was Collected: 19:22
10/29/24 19:35
Pantoprazole [Protonix IV] 80 mg IV NOW STA
10/29/24 19:46
Sterile Water [Sterile Water For Injection] 20 ml .ROUTE .STK-MED
10/29/24 19:50
Type And Crossmatch [Type+Screen] Urgent
10/29/24 19:59
Blood Bank Products [* Blood Bank Products] Urgent
Blood Bank Products: *Packed RBC Leuko(PRBC's)
Quantity: 1
Transfuse Today: Yes
Reason: Anemia
10/29/24 20:13
Emergent Blood Release Stat
Blood Bank Products: *Packed RBC Leuko(PRBC's)
Quantity: 1
Reason: Bleeding
A Blood Permit is Required for all Blood.
FOR LAB PICKUP:
Take order sheet to Blood Bank to strip picker blood products in validated cooler
Immediately return to patient care area.
Blood products released by
Blood Products picked up by
Sent to
Date and Time
10/29/24 20:25
ABO2 Stat
BBK Wristband Number:
Associate notified that ABO2 has been ordered: [id number]
Date: 10/29/24
Time: 20:17
Air Conditioning Insulation Installer ID: [id number]
10/29/24 21:13
* Blood Bank Products Urgent
Blood Bank Products: *Packed RBC Leuko(PRBC's)
Quantity: 1
Transfuse Today: Yes
Reason: Bleeding
10/29/24 21:25
Acetaminophen 1000MG/100Ml [Ofirmev] 1,000 mg in 100 ml IV ONCE
Acetaminophen IV Indication:: ED Narcotic Naive Pt-ONCE
10/29/24 21:28
Admit/Transfer Patient As Directed
Co-Sign Provider:
Level of Care: Inpatient admission
Assign to:: IMU- Intermediate Care
Physician / Group: Justa Ambriz
Diagnosis: Anemia, GI bleed
Reason for Hospitalization: Anemia, GI bleed
Expected length of stay greater than two midnights?: Yes
ELOS- Estimated Length of Stay in days: 3
I certify the patient meets the requirements for IP care: Yes
PRN Pain Medication Management As Directed
May give lesser potent ordered pain med per pt: Yes
preference::
Protocol:: Medication orders for pain may be administered in a
manner that supports deferring to patient preference
when the pt is:
- Requesting an ordered lesser potent pain medication.
Least to most potent pain medications are defined
as: acetaminophen < NSAID < tramadol < opioids
(morphine, oxycodone, hydromorphone).
- Requesting a lesser dose of the same medication IF
ORDERED.
- Requesting a less intrusive route of administration
if both routes are prescribed by the provider (PO <
IV).
10/29/24 21:30
Pantoprazole 80 mg/100 ml Nss [Protonix] 80 mg in 100 ml IV Q10H
10/29/24 21:31
Code Status As Directed
Resuscitation Status: Full Code
10/29/24 21:33
0.9% Sodium Chloride 1000 ml [Nss] 1,000 ml IV BOLUS
10/29/24 22:00
Flush (0.9% Sodium Chloride) [Flush (Nss)] See Dose Instructions IV PER PROTOCOL
10/29/24 22:18
GASTROINTESTINAL CONSULT Routine
Consulting Provider: Jess Atkins
Was physician already notified: Yes
Activity As Directed
Activity Level: With Assistance
INT (Intravenous Needle Therapy) As Directed
Comment: Place 2 IV catheters of the largest bore possible until stable
Orthostatic Vital Signs As Directed
Orthostatic VS Frequency: Now
Comment: then every four hours for twenty-four hours
Pneumatic Compression Sleeves As Directed
Type: Knee high
Vital Signs As Directed
Frequency: Per unit guidelines
DX Deep Vein Thrombosis Video Routine
10/29/24 23:00
Latanoprost [Xalatan Ophthalmic Solution] See Dose Instructions BOTH EYES HS
10/30/24 06:00
Basic Metabolic Panel IN AM
Complete Blood Count/No Diff IN AM
10/30/24 08:00
Atorvastatin [Lipitor] 10 mg PO DAILY
Multivitamin [Theragran] 1 tablet PO DAILY
Abnormal Lab Results
10/29/24 10/29/24
18:32 19:50
RBC 2.27 L 10^6/uL
(4.20-5.40)
Hgb 7.3 L g/dL
(12.0-16.0)
Hct 21.7 L %
(37.0-47.0)
MCH 32.2 H pg
(27.0-31.0)
MPV 10.7 H fL
(7.4-10.4)
Absolute Neuts (auto) 7.4 H 10^3/uL
(1.4-6.5)
Neutrophils % 79.2 H %
(42.2-75.2)
Lymphocytes % 13.3 L %
(20.5-51.1)
BUN 45 H mg/dl
(7-17)
Glucose 107 H mg/dl
(70-99)
Calcium 10.4 H mg/dl
(8.4-10.2)
Total Protein 5.5 L g/dl
(6.3-8.2)
Crossmatch IS Only See Detail
10/29/24 18:32
10/29/24 18:32
Vital Signs
Initial and Last Documented VS:
Initial Vital Signs
BP
107/69
10/29/24 17:54
Last Documented Vital Signs
Temp Pulse Resp BP Pulse Ox
98.9 F 75 15 101/54 97
10/30/24 02:06 10/30/24 02:06 10/30/24 02:06 10/30/24 02:06 10/30/24 02:06
<Jennifer Anguiano PA-C - Last Filed: 10/30/24 04:12>
MDM/Problems Addressed
Differential Diagnosis Includes:
Not limited to: Acute dehydration, orthostatic hypotension, anemia, UTI, cardiac arrhythmia, sepsis, etc.
MDM/Problems Addressed:
89 year old female w/ history as documented presenting with two days of generalized weakness and lightheadedness. She was found to be hypotensive by visiting nurse today and sent to ED. No known fevers or chills. No urinary symptoms. She does report
frequent bowel movements over the past few days after taking MiraLAX to help with constipation. Patient has soft BP on arrival. Otherwise, vital signs stable. Physical exam as above. Labs reviewed significant for anemia with hemoglobin of 7.3 which
is down from baseline around 13 about one year ago. BUN elevated Rectal exam shows heme positive melanotic stool.
Overall impression is likely symptomatic anemia from suspected upper G.I. bleeding. Blood consent signed. IV PPI given.
Update: Patient became hypotensive and transiently bradycardic despite IV fluids and was seen by attending physician � will transfer two units PRBCs. Case discussed with G.I. give concerns of patient instability. Plan to continue with resuscitation
with IV fluids, blood transfusion, and admit to hospitalist for further management. Hospitalist is aware.
Chronic conditions affecting care:
N/A
Acute Exacerbation and/or Progression of Chronic Illness:
Acute upper GI bleeding
<Jennifer Anguiano PA-C - Last Filed: 10/30/24 04:12>
*Pulse Oximetry
Patient hypoxic: no
*EKG
Interpreted by ED Provider?: Yes
EKG Intrepretation Date: 10/29/24
Interpretation: abnormal
Comparison EKG: changes noted
Heart Rate: 92
Rate: normal
Rhythm: sinus and PAC's
Interval: normal interval
QRS Pattern: right bundle branch block and other (Bifascicular block)
Ischemia: no ischemia
*Delivery Associate Interpretation
Rate: normal
Interpretation: normal
Heart Rate: 96
Rhythm: sinus
*Critical Care Note
Total Time (30-74mins, 75-104mins- exclusive of procedures): 30
comment:
Critical care statement: A total of 30 minutes of critical care time was provided for this patient. This includes management of unstable vital signs, evaluation of the patient at bedside, reviewing the patient's pertinent medical records, discussion
with consultants, review of old EKGs and review of pertinent medical records. This time with separate from time utilized to perform the aforementioned documented procedures
<Jennifer Anguiano PA-C - Last Filed: 10/30/24 04:12>
Patient Management
Discussion with other providers: Hospitalist and Animal Care Supervisor (Case discussed with GI)
Escalation/DeEscalation of care consider admission/obs:
Admit indicated
ED Attending Note
<Jennifer Anguiano PA-C - Last Filed: 10/30/24 04:12>
-
Portions of this chart may have been created with voice recognition software.� Occasional wrong word or��sound alike� substitutions may have occurred due to the inherent limitations of voice recognition software.
<Giovanny Martin MD - Last Filed: 10/29/24 20:39>
ED Attending Note
Patient seen and examined by attending physician: Yes
ED Attending Note:
I have seen and evaluated the patient with a [id number] encounter. I have spoken to the advance practicer provider and involved in the medical history, the physical exam, medical decision making.
Evaluation and management service: agree unless noted differently below.
Results interpretation: agree unless noted differently below.
Focused HPI: 89-year-old female presents to the ER for evaluation of lightheadedness and fatigue. Patient started this morning feeling very lightheaded. Had episodes of hypotension on checking blood pressure and ultimately came to the emergency
room for assessment. Denies any chest pain, shortness of breath, abdominal pain, nausea/vomiting. Noted to be markedly anemic after initial assessment�denies history of GI bleeding. She is on aspirin but no other blood thinners. Denies NSAID use.
Physical exam: Awake alert, pale appearing. Tachycardic and hypotensive. Gross melena on rectal exam per PA.
Medical Decision Makin-year-old female presents with lightheadedness and hypotension. Found to have melena on rectal exam. Labs here show anemia with hemoglobin of 7.3 down from prior value of 13.8 a year ago. She is on aspirin no other
blood thinners. Treat with IV PPI. Transfuse PRBCs. Provide IV fluids pending blood transfusion. Admit for continued management. PA discussed with GI for consultation.
Discharge Plan
Departure
Patient Disposition: Admit
Date of Disposition: 10/29/24
Time of Disposition: 20:23
Presentation/result/management discussed w/ accepting MD/DO: Hospitalist
Discharge Problem:
Acute upper GI bleeding
Interventions
Interventions:
*Risk Screen - Suicide Last Done: 10/29/24 18:02
*General Assessment Last Done: 10/29/24 18:02
*Neglect/Abuse Screening Last Done: 10/29/24 18:02
*ED- Fall Risk Assessment Last Done: 10/29/24 18:41
*ED COVID-19 Vaccine History Last Done: 10/29/24 18:42
*Nursing Disposition Last Done: 10/29/24 22:31
ED- Cardiac Assessment Last Done: 10/29/24 18:41
ED- Neurological Assessment Last Done: 10/29/24 18:41
ED- Pulmonary Assessment Last Done: 10/29/24 18:41
Discharge Date and Time
Discharge Date/Time: 10/29/24 22:32
[2024-10-29 19:00] LABS: ALT (SGPT) 28 U/L (0-35); AST (SGOT) 32 U/L (14-36); Albumin 3.5 g/dl (3.5-5.0); Alkaline Phosphatase 53 U/L (38-126); Blood Urea Nitrogen 45 mg/dl (7-17); Calcium 10.4 mg/dl (8.4-10.2); Carbon Dioxide 27 mmol/L (22-30); Chloride 102 mmol/L (98-107); Estimated Creatinine Clearance 35 ml/min; Glucose 107 mg/dl (70-99); Sodium 135 mmol/L (135-145); Total Bilirubin 0.4 mg/dl (0.2-1.3); Total Protein 5.5 g/dl (6.3-8.2); eGFR > 60.00
[2024-10-29 19:06] LABS: % Basophils 0.3 % (0-2); % Eosinophils 0.1 % (0-6); % Immature Granulocytes 0.2 % (0-0.5); % Lymphocytes 13.3 % (20.5-51.1); % Monocytes 6.9 % (1.7-9.3); % Neutrophils 79.2 % (42.2-75.2); Absolute Lymphocytes 1.2 10^3/uL (1.2-3.4); Absolute Monocytes 0.6 10^3/uL (0.1-0.6); Absolute Neutrophils 7.4 10^3/uL (1.4-6.5); Hematocrit 21.7 % (37.0-47.0); Hemoglobin 7.3 g/dL (12.0-16.0); Mean Corp Hgb Conc. 33.6 g/dL (33.0-37.0); Mean Corpuscular Hgb 32.2 pg (27.0-31.0); Mean Corpuscular Volume 95.6 fL (81.0-99.0); Mean Platelet Volume 10.7 fL (7.4-10.4); Nucleated Red Blood Cells % 0 %; Platelet Count 291 10^3/uL (130-400); Red Blood Cell Count 2.27 10^6/uL (4.20-5.40); Red Cell Dist. Width 12.5 % (11.5-14.5); White Blood Cell Count 9.3 10^3/uL (4.8-10.8)
[2024-10-29 19:17] LABS: COVID-19 Antigen Negative (Negative)
[2024-10-29 19:36] LABS: Urine Albumin Negative (Neg - Trace); Urine Bilirubin Negative (Negative); Urine Character Cloudy (Clear); Urine Color Yellow; Urine Glucose Negative (Negative); Urine Ketone Negative (Negative); Urine Leukocyte Negative (Negative); Urine Nitrite Negative (Negative); Urine Occult Blood Negative (Negative); Urine Urobilinogen Negative (Neg - 1+)
[2024-10-29] MEDS: PROTONIX IV 80 MG IV (20:05)
--- NOTE | 2024-10-29 20:36 | HPS.HSE ---
Family Physician
-
Family Physician: Kwan Lincoln
Chief Complaint
-
fatigue/generalized weakness
History of Present Illness
Patient is a 89-year-old female with past medical history significant for hypothyroidism and hyperlipidemia who presented to [facility] ED for evaluation of fatigue/generalized weakness. Patient reports symptoms have been present for the past 2 days. She
reports a fall October 04, with right hip fracture that was surgically repaired in [place] and she went to acute rehab following. During rehab states patient reports a period of hyponatremia and placed on fluid restriction with Lasix daily. Patient
then developed constipation and when she researched and it noted dehydration she electively started drinking more fluids and taking miralax for 2 days with positive results. Patient primary recommended stopping Lasix earlier today with noted
symptoms. Patient report PT came to home today and noted low BP, called primary care with reading and associated dizziness. Prior to primary returning all they called EMS for assistance as she now noted coldness to bilateral lower extremities and
was concerned.
Medical History
Past Medical History
Past Medical History: Reports Other
Additional Past Medical History:
hypothyroidism
hyperlipidemia
chronic neuropathy right leg
Primary osteoarthritis of right knee
Peripheral neuropathy
Iliotibial band syndrome, right leg
Vitamin D deficiency, unspecified
Closed fracture of right tibial plateau, initial encounter
rochanteric bursitis, right hip
Tendinitis involving right hip abductors
Parathyroid hormone excess
Past Surgical History: Reports Other
Additional Past Surgical History:
Breast biopsy(1984)
cataract 06/19
Social History
Tobacco: Non-smoker
Alcohol: None
Drug: None
Personal:
Living: With Family
Employment: Retired
Family History
Family History: Not pertinent
Allergies / Home Medications
Allergies reflects when Allergies were last updated in [employer].
Home Medications with original date entered in [employer]
Allergy/Medication List:
Allergies
Allergy/AdvReac Type Severity Reaction Status Date / Time
No Known Allergies Allergy Verified 11/19/23 19:56
Home Medications
simvastatin 10 mg tablet 10 mg PO DAILY #30 tabs 11/20/23
acetaminophen 500 mg tablet (Tylenol Extra Strength) 500 mg PO QID 10/29/24
aspirin 81 mg chewable tablet 81 mg PO BID 10/29/24
brimonidine 0.2 %-timolol 0.5 % eye drops (Combigan) 1 drp BOTH EYES BID 10/29/24
calcium carbonate 300 mg PO BIDPRN PRN gas pains 10/29/24
latanoprost (PF) 0.005 % eye drops in a dropperette 1 drp BOTH EYES HS 10/29/24
therapeutic multivitamin 1 tab PO DAILY 10/29/24
Review of Systems
-
History Source: Patient
Constitutional: Reports Fatigue and Chills
Neurological: Reports Weakness
Physical Exam
Vital Signs
Vital Signs
Temp Pulse Resp BP Pulse Ox
99.3 F 93 25 107/52 99
10/29/24 18:02 10/29/24 19:30 10/29/24 19:30 10/29/24 19:00 10/29/24 19:30
Physical Exam
General: Well Developed, Well Nourished, No Apparent Distress and Conversant
HEENT: NormoCephalic, Atraumatic, [place] Conjunctivae and Nose Appears Normal
Respiratory: Clear
Cardiac: S1/S2 and Regular Rhythm
Breast: Deferred by me
GI: Soft, Non Tender, Non Distended and Normal Bowel Sounds
Rectal: Hem Positive
Genito-urinary: Deferred by me
Musculoskeletal: No Clubbing, No Cyanosis and Edema, Right Lower Extremity
Skin: IV/Catheter Site
Neuro: Awake, Alert, AO x 3 and Nonfocal/grossly intact
Psych: Calm and Intact Judgment/Insight
Laboratory Results
-
10/29/24 18:32
10/29/24 18:32
Laboratory Results
Total Bilirubin 0.4 mg/dl (0.2-1.3) 10/29/24 18:32
AST 32 U/L (14-36) 10/29/24 18:32
ALT 28 U/L (0-35) 10/29/24 18:32
Alkaline Phosphatase 53 U/L (38-126) 10/29/24 18:32
Data Reviewed
-
Medical Tests (Nuc Med, Echo, EKG etc): Report Reviewed by me (EKG: SINUS RHYTHM WITH PREMATURE ATRIAL COMPLEXES RIGHT BUNDLE BRANCH BLOCK LEFT ANTERIOR FASCICULAR BLOCK BIFASCICULAR BLOCK SEPTAL INFARCT (CITED ON OR BEFORE 19-NOV-2023))
Lab Data: Labs Reviewed by me (hgb 7.3, hct 21.7, BUN 45)
Impression/Plan
-
IMPRESSION/PLAN:
#generalized weakness/fatigue likely 2/2 GI bleed
hgb 7.3, hct 21.7
Stool heme positive
Covid: negative
Influenza: negative
UA: unremarkable
EKG: SINUS RHYTHM WITH PREMATURE ATRIAL COMPLEXES
RIGHT BUNDLE BRANCH BLOCK
LEFT ANTERIOR FASCICULAR BLOCK
BIFASCICULAR BLOCK
SEPTAL INFARCT (CITED ON OR BEFORE 19-NOV-2023)
- Admit to IMU
- Consult GI
- blood consent obtained by ED
- transfuse 2 units PRBCs
- Protonix gtt
- IVF bolus
#hyperlipidemia
- continue simvastatin
Code status: full code
DVT prophylaxis: SCDs
--- NOTE | 2024-10-29 21:19 | W.PN.UPDATE ---
Update Note
Progress Note Update
Patient seen in conjunction with BUNGY JUMP MASTER. I agree the findings and physical. I concur with assessment and plan listed otherwise.
This is a 89-year-old female with past medical history of hyperlipidemia, glaucoma presenting to the emergency department with episode of weakness and hypotension. She had a recent fall with right hip fracture status post total hip surgery about 3
weeks ago. She was started on twice daily aspirin 81 mg about 10 days ago. Patient reports recent black stool with constipation. She was found weak this a.m. and was hypotensive on arrival in the emergency department. Heme positive stool in the
emergency department. Patient denies prior history of GI bleed. She denies abdominal pain nausea or vomiting. She denies history of GERD or peptic ulcer disease. Last colonoscopy was over 15 years ago without any abnormalities that she can
recall. Besides the aspirin she is not on any thinners. She takes Tylenol for pain and no known history of NSAID use otherwise.
In the emergency department she had a low blood pressure of 70 systolic, currently 90, Tmax was 99.3 and she was satting at 7% on room air. ECG shows sinus rhythm with left bundle branch block and left anterior fascicular block but no ischemia.
Hemoglobin was 7.3, last hemoglobin 8 years ago was 13.4. MCV was normal. Electrolyte BUN/creatinine were normal. UA was unremarkable.
Assessment and plan
89-year-old with suspected acute GI bleed and hemorrhagic shock. Suspect upper GI bleed/duodenal bleed but cannot rule out intestinal bleed. However she is not having any bright red blood per rectum and stool was negative for fresh blood on
examination. History of twice daily aspirin use recently but otherwise no anticoagulants. Family endorsed that she has been taking Tums more frequently recently.
- Admit to IMU
- 2 L normal saline bolus, continue with lactated Ringer's at 100 cc an hour
- Will transfuse with 2 units of RBCs
- H&H every 6 hours
- Holding aspirin and Lovenox
- Protonix drip continuous
- N.p.o. except for ice chips
- GI consultation
DVT prophylaxis�SCDs
CODE STATUS�full code
[2024-10-29] MEDS: OFIRMEV 100 IV (21:44)
[2024-10-29] MEDS: FLUSH (NSS) 1 FLUSH IV (21:45)
[2024-10-29] MEDS: PROTONIX 100 IV (21:50)
[2024-10-29] MEDS: NSS 1000 IV (21:54)
[2024-10-29] MEDS: XALATAN OPHTHALMIC SOLUTION BOTH EYES (23:14)
[2024-10-30] VITALS (30 sets, daily range): BP systolic 12–155; BP diastolic 46–82; PULSE 74–90; O2SAT 97–99
[2024-10-30] MEDS: TYLENOL 500 MG PO ×2 (03:22→18:19)
[2024-10-30] MEDS: TUMS CHEWABLE TABLET 200 MG PO ×2 (04:46→18:19)
[2024-10-30 05:59] LABS: Blood Urea Nitrogen 40 mg/dl (7-17); Calcium 8.8 mg/dl (8.4-10.2); Carbon Dioxide 23 mmol/L (22-30); Chloride 114 mmol/L (98-107); Estimated Creatinine Clearance 40 ml/min; Glucose 95 mg/dl (70-99); Potassium 3.7 mmol/L (3.5-5.1); Sodium 139 mmol/L (135-145); eGFR > 60.00
--- NOTE | 2024-10-30 06:00 | PTCARENOTE ---
Admitted pt overnight, very drowsy, pale, & forgetful. 2nd unit PRBC given. Bp's running soft but stable. protonix running. Remains bedrest for now d/t dizziness/lightheadness. NO bms overnight. R hip precautions, surgical site looks good, AMBER.
Tylenol ordered PRN for pain. Tums ordered prn for indigestion. NO other issues at this time.
[2024-10-30 06:01] LABS: Hematocrit 23.6 % (37.0-47.0); Hemoglobin 8.6 g/dL (12.0-16.0); Mean Corp Hgb Conc. 36.4 g/dL (33.0-37.0); Mean Corpuscular Hgb 33.2 pg (27.0-31.0); Mean Corpuscular Volume 91.1 fL (81.0-99.0); Mean Platelet Volume 10.1 fL (7.4-10.4); Platelet Count 195 10^3/uL (130-400); Red Blood Cell Count 2.59 10^6/uL (4.20-5.40); Red Cell Dist. Width 15.1 % (11.5-14.5); White Blood Cell Count 9.5 10^3/uL (4.8-10.8)
--- NOTE | 2024-10-30 06:49 | CON.GI ---
Addendum entered and electronically signed by Jess Vyas Do, MD 10/30/24 10:40:
I saw and examined the patient.
The YOUTH COORDINATOR's note was reviewed and I agree with the note.
Comment: Alyssa is an 89yo W with h/o hypothyroidism and OA s/p recent fall with hip fracture on nsaids, celebrex and steroids who presents with hypotension and anemia with elevated BUN. Vitals reviewed hypotension in ER now resolved. NTTP, thin
body habitus. Labs reviewed s/p 2u PRBC
Recommendations
- Recommend EGD today ddx includes PUD in setting of nsaid/lozoya inhibitor and steroid use
- Risk/benefits discussed
- Serial H/H
- Protonix gtt
- NPO for now
Will follow with you
Original Note:
Consultation
-
Date/Time Consultation Requested: 10/29/240
Date/Time Consultation Performed: 10/30/24 0650
Requesting Provider: SILVESTRE Alejandra
Performing Provider: SILVESTRE Chambers, Jess Atkins MD
Reason for Consultation: GI bleed
Medical History
Chief Complaint / HPI
Chief Complaint: weakness
History of Present Illness:
Pt is an 89yo with hx hypercholesterolemia, hypothyroidism,neuropathy, osteoarthritis with onset of weakness. Per ER notes noted with recent constipation with need for Miralax then frequent stools with dark color. She also had recent fall with hip
fracture with rehab stay. No return home noted with hypotension and directed to ER. On admission noted with hbg 7.3 with BUN 45. Prior to admission pt was on ASA 81mg BID and Tylenol 500mg QID. ER rectal exam with heme + melena along with
hypotension and tachycardia.
At this time patient admits to severe weakness and occasional loose stools. She otherwise denies dysphagia, GERD, nausea, vomiting, abdominal pain or red blood in stools. She did not recall any other NSAID than ASA and denies anticoagulation
use. No hx EGD and last colonoscopy about 20 years ago in [place] did not recall any findings. + family hx colon CA in mother and maternal GF.
Past Medical History
Past Medical History: Hypercholesterolemia, Hypothyroidism and Other (neuropathy, osteoarthritis, IT band syndrome, vitamin D deficiency, tibial fracture, hip bursititis, tendonitis, parathyroid hormone excess, recent hip fracture )
Past Surgical History: Gynecological (breast biopsy) and Other (cataracts )
Social History
Tobacco: Non-Smoker
Alcohol: None
Drug: None
Personal:
Living: With Family
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
Family History
Family History: Other (mother and maternal GF with colon CA)
Allergies / Home Medications
Allergy/AdvReac Type Severity Reaction Status Date / Time
No Known Allergies Allergy Verified 11/19/23 19:56
�Medication �Instructions �Recorded
simvastatin 10 mg tablet 10 mg PO DAILY #30 tabs 11/20/23
acetaminophen 500 mg tablet 500 mg PO QID 10/29/24
(Tylenol Extra Strength)
aspirin 81 mg chewable tablet 81 mg PO BID 10/29/24
brimonidine 0.2 %-timolol 0.5 % 1 drp BOTH EYES BID 10/29/24
eye drops (Combigan)
calcium carbonate 300 mg PO BIDPRN PRN gas pains 10/29/24
latanoprost (PF) 0.005 % eye drops 1 drp BOTH EYES HS 10/29/24
in a dropperette
therapeutic multivitamin 1 tab PO DAILY 10/29/24
Review of Systems
-
History Source: Patient
Constitutional: Reports No Symptoms
EENT: Reports No Symptoms
Respiratory: Reports No Symptoms
Abdomen/GI: Reports Black Stools
: Reports No Symptoms
Musculoskeletal: Reports Other (recent hip fracture )
Skin: Reports No Symptoms
Neurological: Reports Dizzy and Weakness
Endocrine: Reports No Symptoms
Hematologic/Lymphatic: Reports Bleeding
Vital Signs
Temp Pulse Resp BP Pulse Ox
97.6 F 68 17 112/53 98
10/30/24 03:50 10/30/24 06:00 10/30/24 06:00 10/30/24 06:00 10/30/24 06:00
Physical Exam
Exam
General: Well Developed, Well Nourished and No Apparent Distress
HEENT: Normocephalic
Respiratory: Clear
Cardiac: Regular Rhythm
GI: Soft, Non Tender and Non Distended
Rectal: Other (melena in ER)
Musculoskeletal: No Clubbing and No Cyanosis
Skin: Warm and Dry
Neuro: Awake, Alert and AO x 3
Psych: Calm
Results
WBC 9.5 10^3/uL (4.8-10.8) 10/30/24 04:46
Hgb 8.6 g/dL (12.0-16.0) L 10/30/24 04:46
Hct 23.6 % (37.0-47.0) L 10/30/24 04:46
MCV 91.1 fL (81.0-99.0) 10/30/24 04:46
Plt Count 195 10^3/uL (130-400) D 10/30/24 04:46
Absolute Neuts (auto) 7.4 10^3/uL (1.4-6.5) H 10/29/24 18:32
Sodium 139 mmol/L (135-145) 10/30/24 04:46
Potassium 3.7 mmol/L (3.5-5.1) 10/30/24 04:46
Chloride 114 mmol/L (98-107) H 10/30/24 04:46
Carbon Dioxide 23 mmol/L (22-30) 10/30/24 04:46
BUN 40 mg/dl (7-17) H 10/30/24 04:46
Creatinine 0.7 mg/dL (0.6-1.0) 10/30/24 04:46
Calcium 8.8 mg/dl (8.4-10.2) D 10/30/24 04:46
Total Bilirubin 0.4 mg/dl (0.2-1.3) 10/29/24 18:32
AST 32 U/L (14-36) 10/29/24 18:32
ALT 28 U/L (0-35) 10/29/24 18:32
Alkaline Phosphatase 53 U/L (38-126) 10/29/24 18:32
Diagnostic Image Results:
Prior GI Procedures:
EGD:
none
Colonoscopy:
last 20 years ago in [place] recalls as normal
Assessment / Plan
-
Pt is an 89yo with hx hypercholesterolemia, hypothyroidism,neuropathy, osteoarthritis with onset of weakness. Per ER notes noted with recent constipation with need for Miralax then frequent stools with dark color. She also had recent fall with hip
fracture with rehab stay. No return home noted with hypotension and directed to ER. On admission noted with hbg 7.3 with BUN 45. Prior to admission pt was on ASA 81mg BID and Tylenol 500mg QID. ER rectal exam with heme + melena along with
hypotension and tachycardia. No hx EGD and last colonoscopy about 20 years ago in [place] did not recall any findings. + family hx colon CA in mother and maternal GF.
-melena
-symptomatic anemia
-hypotension and tachycardia on admission
-recent hip fx with NSAID use
other med problems:
-hypercholesterolemia
-hypothyroidism
-neuropathy
-osteoarthritis
-family hx colon CA in mother and maternal GF
PLAN:
etiology of melena with symptomatic anemia, hypotension/tachycardia with BUN elevation related to upper GI bleed- PUD with recent NSAID use, ectasia, mass vs other
hbg up to 8.6 with transfusion
cont to trend hbg and stool records
plan for EGD today
if neg pt agreeable for colonoscopy next
cont PPI gtt
NSAID avoidance
add iron studies, B12, folate
I left message for spouse with plan as reviewed with patient
-
-
Thank you for consultation and allowing me to participate in the patient's care. Please call the button station worker GI physician during the after hours with any questions or concerns.
[2024-10-30] MEDS: PROTONIX 100 IV ×2 (07:58→17:20)
[2024-10-30] MEDS: THERAGRAN 1 TABLET PO (07:59)
[2024-10-30] MEDS: ALPHAGAN 0.2% EYE DROPS 1 DROP OPHTH ×2 (07:59→20:11)
[2024-10-30] MEDS: LIPITOR 10 MG PO (07:59)
[2024-10-30] MEDS: TIMOPTIC 0.5% OPHTHALMIC SOLUTION 1 DROP OPHTH ×2 (08:00→20:11)
--- NOTE | 2024-10-30 08:07 | W.PN.HOSP.TC ---
Today's Communication/Plan
-
see A/P
Assessment / Plan
Assessment / Plan
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
She also reports a fall in the beginning of the month with right hip fracture that was surgically repaired in [place]. She went to acute rehab following that.
A/P:
#generalized weakness/fatigue likely 2/2 acute blood loss anemia 2/2 GI bleed
hgb 7.3 on admission from baseline 13
s/p 2 units PRBC transfusion, Hgb improved to 8.6
Cont Protonix gtt
Follow iron panel, B12 and folate level
GI on board for endoscopy eval
# hyperlipidemia
continue simvastatin
# Recent fall with R hip fracture s/p repair
PT eval
Code status: full code
DVT prophylaxis: SCDs
Anticipated Discharge: 24 - 48 hours
Subjective/Interval History
-
Date of Service: October 30, 2024
Objective Data
-
Labs:
Laboratory Results
10/29/24 10/30/24
22:18 04:46
WBC 9.5
Hgb Cancelled 8.6 L
Hct Cancelled 23.6 L
Plt Count 195 D
Sodium 139
Potassium 3.7
Chloride 114 H
Carbon Dioxide 23
BUN 40 H
Creatinine 0.7
Glucose 95
Calcium 8.8 D
Vital Signs:
Vital Signs
Temp Pulse Resp BP Pulse Ox
36.6 C 68 17 112/53 98
10/30/24 07:30 10/30/24 06:00 10/30/24 06:00 10/30/24 06:00 10/30/24 06:00
I&O
10/29/24 10/30/24 10/31/24
06:59 06:59 06:59
Intake Total 250 / 250
Balance 250 / 250
Review of Systems
-
All other systems: Reviewed and negative
Physical Exam
-
General: Well Developed, Well Nourished, No Apparent Distress, Comfortable and Conversant; Negative Respiratory Distress
HEENT: Normocephalic, Atraumatic, Nose Appears Normal and Ears Appear Normal; Negative Oxygen
Respiratory: Clear to Auscultation and Non Labored Respirations; Negative Accessory Resp Muscle Use
Cardiac: Regular Rhythm and S1/S2
GI: Soft, Nontender, Nondistended and Normal Bowel Sounds
Skin: Warm and Dry
Neuro: Awake, Alert, Oriented and AO x 3
Psych: Calm and Intact Judgement/Insight
Data Reviewed
-
Labs: Labs Reviewed by me
[2024-10-30 08:28] LABS: Iron 186 ug/dl (37-170); Percent Saturation 82 % (20-50); Total Iron Binding Capacity 225 ug/dl (265-497)
--- NOTE | 2024-10-30 08:33 | VNURNOTE ---
Chart reviewed. Patient is current with [facility] nursing, PT, OT. Will continue to follow hospital course and DC plans.
[2024-10-30 09:46] LABS: Folate 11.9 ng/ml (2.76-20); Vitamin B12 603 pg/ml (239-931)
--- NOTE | 2024-10-30 12:13 | SUR.PHASEI ---
sleeps unless disturbed, easily arousable, c/o slight ' acid indigestion,' vss, patient is surprised the procedure is complete. otherwise comfortable.
--- NOTE | 2024-10-30 16:24 | PTCARENOTE ---
pt had upper endoscopy this am. clear liquid diet started and pt ate about 25 percent. tylenol and tums given at pts request. pt tolerated getting oob, ambulated with assist of one without any c/o dizziness. pt had one black bowel movement.
[2024-10-30] MEDS: CARAFATE SUSPENSION 1 GM PO ×2 (17:18→20:10)
--- NOTE | 2024-10-30 18:45 | DOWNTIME ---
There was a [employer] Client Clothes Drier Repairer Downtime on 10/30/2024 from 1230 to 10/30/2024 at 1550. Downtime documentation of patient's care, including medication administrations, has been reconciled in the electronic record per guidelines. Refer to the
patient's paper chart under the miscellaneous tab to see printed paper medication records and downtime forms.
[2024-10-30] MEDS: XALATAN OPHTHALMIC SOLUTION 1 DROP BOTH EYES (20:10)
--- NOTE | 2024-10-30 20:29 | PTCARENOTE ---
Caring for pt overnighit. aaox3 but forgetful & anxious at times. NSR. VSS. R hip precautions. pt oob to chair. Denies any pain, tylenol prn if needed. No bm so far. Protonix gtt running. NO other issues. will monitor.
[2024-10-31] VITALS (18 sets, daily range): BP systolic 85–142; BP diastolic 53–123
[2024-10-31] MEDS: TYLENOL 500 MG PO (00:11)
[2024-10-31] MEDS: TUMS CHEWABLE TABLET 200 MG PO (00:12)
[2024-10-31] MEDS: PROTONIX 100 IV ×2 (03:28→14:05)
[2024-10-31 05:11] LABS: Hematocrit 20.4 % (37.0-47.0); Hemoglobin 7.5 g/dL (12.0-16.0); Mean Corp Hgb Conc. 36.8 g/dL (33.0-37.0); Mean Corpuscular Hgb 33.9 pg (27.0-31.0); Mean Corpuscular Volume 92.3 fL (81.0-99.0); Mean Platelet Volume 10.2 fL (7.4-10.4); Platelet Count 196 10^3/uL (130-400); Red Blood Cell Count 2.21 10^6/uL (4.20-5.40); Red Cell Dist. Width 15.9 % (11.5-14.5); White Blood Cell Count 9.4 10^3/uL (4.8-10.8)
[2024-10-31 05:33] LABS: Blood Urea Nitrogen 23 mg/dl (7-17); Carbon Dioxide 25 mmol/L (22-30); Chloride 113 mmol/L (98-107); Estimated Creatinine Clearance 40 ml/min; Glucose 86 mg/dl (70-99); Magnesium 1.7 mg/dl (1.6-2.3); Potassium 3.2 mmol/L (3.5-5.1); Sodium 138 mmol/L (135-145); eGFR > 60.00
--- NOTE | 2024-10-31 06:52 | W.PN.UPDATE ---
Update Note
Progress Note Update
AM labs, Hgb 7.5, ordered 1 unit PRBC's to be transfused.
K+ 3.2, ordered supplemental potassium 40 meq PO x 1.
--- NOTE | 2024-10-31 08:05 | W.PN.HOSP.TC ---
Today's Communication/Plan
-
see A/P
Assessment / Plan
Assessment / Plan
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
She also reports a fall in the beginning of the month with right hip fracture that was surgically repaired in [place]. She went to acute rehab following that.
A/P:
#generalized weakness/fatigue likely 2/2 acute blood loss anemia 2/2 GI bleed
hgb 7.3 on admission from baseline 13
s/p 2 units PRBC transfusion, Hgb improved to 8.6
Hgb dropped to 7.5 again today, transfuse additional unit
s/p EGD 10/30: noted non-bleeding large 15mm in size anterior duodenal ulcer with a visible vessel. Injected. Treated with bipolar cautery.
GI recc to cont Protonix gtt for x72hrs then BID x12 wks then daily afterwards
Added carafate
Repeat EGD in 12 mo to ascertain healing
iron panel acceptable, B12 and folate levels WNL
# Hypokalemia
replete
# hyperlipidemia
continue simvastatin
# Recent fall with R hip fracture s/p repair
PT eval
Code status: full code
DVT prophylaxis: SCDs
DW RN
total time 51 min
Anticipated Discharge: 24 - 48 hours
Subjective/Interval History
-
Date of Service: October 31, 2024
Objective Data
-
Labs:
Laboratory Results
10/31/24
04:26
WBC 9.4
Hgb 7.5 L
Hct 20.4 L*
Plt Count 196
Sodium 138
Potassium 3.2 L
Chloride 113 H
Carbon Dioxide 25
BUN 23 H
Creatinine 0.7
Glucose 86
Calcium 9.0
Vital Signs:
Vital Signs
Temp Pulse Resp BP Pulse Ox
36.8 C 65 15 119/62 97
10/31/24 03:24 10/31/24 06:00 10/31/24 06:00 10/31/24 06:00 10/30/24 20:25
I&O
10/30/24 10/31/24 11/01/24
06:59 06:59 06:59
Intake Total 250 / 250 240 / 240
Balance 250 / 250 240 / 240
Review of Systems
-
All other systems: Reviewed and negative
Physical Exam
-
General: Well Developed, Well Nourished, No Apparent Distress, Comfortable and Conversant; Negative Respiratory Distress
HEENT: Normocephalic, Atraumatic, Nose Appears Normal and Ears Appear Normal; Negative Oxygen
Respiratory: Clear to Auscultation and Non Labored Respirations; Negative Accessory Resp Muscle Use
Cardiac: Regular Rhythm and S1/S2
GI: Soft, Nontender, Nondistended and Normal Bowel Sounds
Skin: Warm and Dry
Neuro: Awake, Alert, Oriented and AO x 3
Psych: Calm and Intact Judgement/Insight
Data Reviewed
-
Labs: Labs Reviewed by me
[2024-10-31] MEDS: KLOR-CON 40 MEQ PO ×2 (08:10→14:05)
[2024-10-31] MEDS: CARAFATE SUSPENSION 1 GM PO ×4 (08:10→21:59)
[2024-10-31] MEDS: LIPITOR 10 MG PO (08:11)
[2024-10-31] MEDS: THERAGRAN 1 TABLET PO (08:11)
[2024-10-31] MEDS: ALPHAGAN 0.2% EYE DROPS 1 DROP OPHTH ×2 (08:12→20:07)
[2024-10-31] MEDS: TIMOPTIC 0.5% OPHTHALMIC SOLUTION 1 DROP OPHTH ×2 (08:13→20:07)
[2024-10-31] MEDS: MAGNESIUM SULFATE 102 GRAMS IV (11:12)
--- NOTE | 2024-10-31 11:12 | W.PN.GI.CBS2 ---
Today's Communication / Plan
-
Clear liquid diet
C/w protonix gtt
Monitor color of stool output
Assessment / Plan
-
Pt is an 89yo with hx hypercholesterolemia, hypothyroidism,neuropathy, osteoarthritis with onset of weakness. Per ER notes noted with recent constipation with need for Miralax then frequent stools with dark color. She also had recent fall with hip
fracture with rehab stay. No return home noted with hypotension and directed to ER. On admission noted with hbg 7.3 with BUN 45. Prior to admission pt was on ASA 81mg BID and Tylenol 500mg QID. ER rectal exam with heme + melena along with
hypotension and tachycardia. No hx EGD and last colonoscopy about 20 years ago in [place] did not recall any findings. + family hx colon CA in mother and maternal GF.
Impression
-Duodenal ulcer seen on EGD 10/30 s/p epi and bicap
-symptomatic anemia
-hypotension and tachycardia on admission
-recent hip fx with NSAID use
-hypercholesterolemia
-hypothyroidism
-neuropathy
-osteoarthritis
-family hx colon CA in mother and maternal GF
Recommendations
- Serial H/H
- C/w PPI Gtt to complete 72hrs then protonix 40mg BID x12 wks
- C/w carafate oral
- Adv to CLD today
- Close monitor of stool output
- Spouse updated by me 10/30. Avoid all future nsaids and repeat EGD 12 wks time to ascertain healing
Will follow with you
Subjective
Subjective
Date of Service: October 31, 2024
She had BM yesterday did not see color and not recorded in [employer] as there was downtime in system yesterday. Denies abd pain nausea/vomiting
Objective
Data Reviewed
Laboratory Data:
Laboratory Results
10/31/24 04:26
10/31/24 04:26
Laboratory Results
Magnesium 1.7 mg/dl (1.6-2.3) 10/31/24 04:26
Total Bilirubin 0.4 mg/dl (0.2-1.3) 10/29/24 18:32
AST 32 U/L (14-36) 10/29/24 18:32
ALT 28 U/L (0-35) 10/29/24 18:32
Alkaline Phosphatase 53 U/L (38-126) 10/29/24 18:32
Vital Signs and I&O:
Vital Signs
Temp Pulse Resp BP Pulse Ox
97.9 F 65 15 119/62 97
10/31/24 07:41 10/31/24 06:00 10/31/24 06:00 10/31/24 06:00 10/30/24 20:25
I&O
10/30/24 10/31/24 11/01/24
06:59 06:59 06:59
Intake Total 250 / 250 240 / 240
Balance 250 / 250 240 / 240
Physical Exam
Physical Exam
GEN: No acute distress, conversant, pleasant
HEENT: anicteric, extraocular movements intact, clear oropharynx without exudates
GI: soft, non-distended, not tender to palpation, normal active bowel sounds, no hepatosplenomegaly
EXT: warm, well perfused, thin edema bilaterally
NEURO: AAOx3, non-focal
--- NOTE | 2024-10-31 11:36 | CM ---
Initial assessment completed with patient on 10/30/24. She lives with her in a 4 story home with B/B on 2nd and 1/ bath on , 5 steps to enter with Left rail. On 10/04/24, patient fell in [place] and broke her hip. She had surgery. She
was then at [facility] and was discharged with HH VN PT/OT prior to this admission. HH with . Prior to hip fracture, she was independent in ADL's and ambulation and drove. She now has a RW and SPC. She does have HC-POA. No
service. Support system is , guanako and good friend Lesa. PCP is Dr. Kwan Lincoln and Pharmacy is [facility] on [address] in [place]. Discharge POC: Resume HH services for RN, PT/OT with .
--- NOTE | 2024-10-31 18:38 | PTCARENOTE ---
pt tolerating clear liquids. one unit prbcs infused without incident for hemoglobin 7.5. repeat hemoglobin to be drawn at 1999. pt had 2 formed black bms on bedside commode. potassium and magnesium repleted per order.
[2024-10-31 20:38] LABS: Hematocrit 25.2 % (37.0-47.0); Hemoglobin 9.3 g/dL (12.0-16.0)
[2024-10-31] MEDS: XALATAN OPHTHALMIC SOLUTION 1 DROP BOTH EYES (21:59)
[2024-11-01] VITALS (17 sets, daily range): BP systolic 86–130; BP diastolic 37–113; PULSE 80–91
--- NOTE | 2024-11-01 | PTCARENOTE ---
received pt from pasquale ESTRADA. Pt aaox3, able to make needs known. Assisted pt to BSC with assistx1. Small, formed black bowel movement. Remains on protonix gtt, remains on CLD. Repeat hgb 9.3. Will recheck with am labs. VSS. Call collier and belongings
within reach. Care ongoing.
[2024-11-01] MEDS: PROTONIX 100 IV ×3 (00:45→20:06)
[2024-11-01 04:18] LABS: Hematocrit 24.5 % (37.0-47.0); Hemoglobin 9.1 g/dL (12.0-16.0); Mean Corp Hgb Conc. 37.1 g/dL (33.0-37.0); Mean Corpuscular Hgb 34.1 pg (27.0-31.0); Mean Corpuscular Volume 91.8 fL (81.0-99.0); Mean Platelet Volume 10.3 fL (7.4-10.4); Platelet Count 227 10^3/uL (130-400); Red Blood Cell Count 2.67 10^6/uL (4.20-5.40); Red Cell Dist. Width 14.7 % (11.5-14.5); White Blood Cell Count 10.8 10^3/uL (4.8-10.8)
[2024-11-01 04:44] LABS: Blood Urea Nitrogen 28 mg/dl (7-17); Calcium 8.9 mg/dl (8.4-10.2); Carbon Dioxide 23 mmol/L (22-30); Chloride 114 mmol/L (98-107); Estimated Creatinine Clearance 40 ml/min; Glucose 103 mg/dl (70-99); Magnesium 1.9 mg/dl (1.6-2.3); Potassium 4.1 mmol/L (3.5-5.1); Sodium 138 mmol/L (135-145); eGFR > 60.00
[2024-11-01] MEDS: TYLENOL 500 MG PO ×2 (05:01→20:05)
[2024-11-01] MEDS: TUMS CHEWABLE TABLET 200 MG PO ×2 (05:01→20:06)
--- NOTE | 2024-11-01 08:04 | W.PN.HOSP.TC ---
Today's Communication/Plan
-
see A/P
Assessment / Plan
Assessment / Plan
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
She also reports a fall in the beginning of the month with right hip fracture that was surgically repaired in [place]. She went to acute rehab following that.
A/P:
#generalized weakness/fatigue likely 2/2 acute blood loss anemia 2/2 GI bleed
hgb 7.3 on admission from baseline 13
s/p total 3 units PRBC transfusion, Hgb today at 9.1
s/p EGD 10/30: noted non-bleeding large 15mm in size anterior duodenal ulcer with a visible vessel. Injected. Treated with bipolar cautery.
GI recc to cont Protonix gtt for x72hrs then BID x12 wks then daily afterwards
Added carafate
Repeat EGD in 12 mo to ascertain healing
iron panel acceptable, B12 and folate levels WNL
# Hypokalemia
repleted
# hyperlipidemia
continue simvastatin
# Recent fall with R hip fracture s/p repair
PT eval recc home vs outpt PT
Code status: full code
DVT prophylaxis: SCDs
DW RN
Anticipated Discharge: Within 24 hours
Subjective/Interval History
-
Date of Service: November 01, 2024
Objective Data
-
Labs:
Laboratory Results
10/31/24 11/01/24
20:19 03:58
WBC 10.8
Hgb 9.3 L D 9.1 L
Hct 25.2 L 24.5 L
Plt Count 227
Sodium 138
Potassium 4.1 D
Chloride 114 H
Carbon Dioxide 23
BUN 28 H
Creatinine 0.7
Glucose 103 H
Calcium 8.9
Vital Signs:
Vital Signs
Temp Pulse Resp BP Pulse Ox
36.6 C 96 17 130/80 99
11/01/24 03:52 11/01/24 04:09 11/01/24 04:09 11/01/24 04:09 11/01/24 03:15
I&O
10/31/24 11/01/24 11/02/24
06:59 06:59 06:59
Intake Total 240 / 240 1290 / 1290
Balance 240 / 240 1290 / 1290
Review of Systems
-
All other systems: Reviewed and negative
Physical Exam
-
General: Well Developed, Well Nourished, No Apparent Distress, Comfortable and Conversant; Negative Respiratory Distress
HEENT: Normocephalic, Atraumatic, Nose Appears Normal and Ears Appear Normal; Negative Oxygen
Respiratory: Clear to Auscultation and Non Labored Respirations; Negative Accessory Resp Muscle Use
Cardiac: Regular Rhythm and S1/S2
GI: Soft, Nontender, Nondistended and Normal Bowel Sounds
Skin: Warm and Dry
Neuro: Awake, Alert, Oriented and AO x 3
Psych: Calm and Intact Judgement/Insight
Data Reviewed
-
Labs: Labs Reviewed by me
[2024-11-01] MEDS: THERAGRAN 1 TABLET PO (08:48)
[2024-11-01] MEDS: TIMOPTIC 0.5% OPHTHALMIC SOLUTION 1 DROP OPHTH ×2 (08:48→20:07)
[2024-11-01] MEDS: CARAFATE SUSPENSION 1 GM PO ×4 (08:48→21:56)
[2024-11-01] MEDS: ALPHAGAN 0.2% EYE DROPS 1 DROP OPHTH ×2 (08:48→20:07)
[2024-11-01] MEDS: LIPITOR 10 MG PO (08:48)
--- NOTE | 2024-11-01 10:08 | W.PN.GI.CBS2 ---
Addendum entered and electronically signed by Tiffany Bright MD 11/01/24 14:00:
I saw and examined the patient.
The REFINERY OPERATOR VISBREAKING's note was reviewed and I agree with the note.
Comment: No further bleeding and hemoglobin remains stable was advanced to pur�ed diet today but could advance to regular diet as tolerated tomorrow she is lactose-free and gluten-free. Possible DC in a.m. if no further bleeding and she does have
an outpatient appointment set up for 12/04.
Will sign off and will be available as needed
Original Note:
Today's Communication / Plan
-
- Serial H/H-- hbg 9.1 today -- BUN 45 on admission to today
cont to trend labs
- C/w PPI Gtt to complete 72hrs--- can transition 11/02 if stable to protonix 40mg BID x12 wks
- C/w carafate oral
-add miralax PRN as Carafate can be constipation
- Adv to purred diet as follows low lactose/gluten free diet further advancement in AM if stable
- Close monitor of stool output
- Spouse updated but Dr. Atkins 10/30. Avoid all future nsaids and repeat EGD 12 wks time to ascertain healing
pt is scheduled 12/04 at 11:30 am with Amelie RIVERS for GI follow up
Will follow with you
Assessment / Plan
-
Pt is an 89yo with hx hypercholesterolemia, hypothyroidism,neuropathy, osteoarthritis with onset of weakness. Per ER notes noted with recent constipation with need for Miralax then frequent stools with dark color. She also had recent fall with hip
fracture with rehab stay. No return home noted with hypotension and directed to ER. On admission noted with hbg 7.3 with BUN 45. Prior to admission pt was on ASA 81mg BID and Tylenol 500mg QID. ER rectal exam with heme + melena along with
hypotension and tachycardia. No hx EGD and last colonoscopy about 20 years ago in [place] did not recall any findings. + family hx colon CA in mother and maternal GF.
10/[address] Atkins - Normal esophagus - 2 cm hiatal hernia.
- Non-bleeding large 15mm in size anterior duodenal ulcer with a visible vessel. Injected. Treated with bipolar cautery- No specimens collected.
Laboratory Tests
10/29/24 10/30/24 10/31/24
18:32 04:46 04:26
Hgb 7.3 L 8.6 L 7.5 L
10/31/24 11/01/24
20:19 03:58
Hgb 9.3 L D 9.1 L
Impression
-Duodenal ulcer seen on EGD 10/30 s/p epi and bicap
-symptomatic anemia
-hypotension and tachycardia on admission
-recent hip fx with NSAID use
-hypercholesterolemia
-hypothyroidism
-neuropathy
-osteoarthritis
-family hx colon CA in mother and maternal GF
Recommendations
- Serial H/H-- hbg 9.1 today -- BUN 45 on admission to today
cont to trend labs
- C/w PPI Gtt to complete 72hrs--- can transition 11/02 if stable to protonix 40mg BID x12 wks
- C/w carafate oral
-add miralax PRN as Carafate can be constipation
- Adv to purred diet as follows low lactose/gluten free diet further advancement in AM if stable
- Close monitor of stool output
- Spouse updated but Dr. Atkins 10/30. Avoid all future nsaids and repeat EGD 12 wks time to ascertain healing
pt is scheduled 12/04 at 11:30 am with Amelie RIVERS for GI follow up
Will follow with you
Subjective
Subjective
Date of Service: November 01, 2024
10/31 blood tinged/black stool on clear diet
Objective
Data Reviewed
Laboratory Data:
Laboratory Results
11/01/24 03:58
11/01/24 03:58
Laboratory Results
Magnesium 1.9 mg/dl (1.6-2.3) 11/01/24 03:58
Total Bilirubin 0.4 mg/dl (0.2-1.3) 10/29/24 18:32
AST 32 U/L (14-36) 10/29/24 18:32
ALT 28 U/L (0-35) 10/29/24 18:32
Alkaline Phosphatase 53 U/L (38-126) 10/29/24 18:32
Vital Signs and I&O:
Vital Signs
Temp Pulse Resp BP Pulse Ox
97.5 F 96 17 130/80 99
11/01/24 08:15 11/01/24 04:09 11/01/24 04:09 11/01/24 04:09 11/01/24 03:15
I&O
10/31/24 11/01/24 11/02/24
06:59 06:59 06:59
Intake Total 240 / 240 1290 / 1290
Balance 240 / 240 1290 / 1290
Physical Exam
Physical Exam
HEENT: Anicteric
Cardiology: Normal Sinus Rhythm
Pulmonary: Clear
GI: Soft, Non Distended and Non Tender
Extremities: No Edema
Neuro: Non Focal
--- NOTE | 2024-11-01 13:31 | PTCARENOTE ---
Assumed care of patient at beginning of this shift from previous RN. Patient worked with PT and ambulated in halls; OOB to chair x1 assist. Tolerated clear liquid diet. Glory Page GOLD PLATER with GI increased to IDD4 pureed as patient is lactose intolerant
and gluten free; she stated patient will have more choices. Patient tolerated lunch. One bm as of this time: black with some red/pink mixed with urine. See worklist for full assessment and vital signs.
[2024-11-01] MEDS: XALATAN OPHTHALMIC SOLUTION 1 DROP BOTH EYES (21:56)
[2024-11-01] MEDS: PROTONIX IV (23:45)
[2024-11-02] VITALS (18 sets, daily range): BP systolic 91–148; BP diastolic 46–93
[2024-11-02] MEDS: TUMS CHEWABLE TABLET 200 MG PO ×3 (01:20→20:43)
[2024-11-02] MEDS: TYLENOL 500 MG PO ×3 (01:20→20:43)
--- NOTE | 2024-11-02 02:28 | PTCARENOTE ---
pt tolerating pureed diet, no c/o abdominal pain. One small black bowel movement this shift. Declined miralax when offered. Resting comfortably in bed at this time. VSS. Care ongoing.
[2024-11-02 04:29] LABS: Hematocrit 22.1 % (37.0-47.0); Hemoglobin 7.6 g/dL (12.0-16.0); Mean Corp Hgb Conc. 34.4 g/dL (33.0-37.0); Mean Corpuscular Hgb 31.7 pg (27.0-31.0); Mean Corpuscular Volume 92.1 fL (81.0-99.0); Mean Platelet Volume 9.8 fL (7.4-10.4); Platelet Count 233 10^3/uL (130-400); Red Cell Dist. Width 15.1 % (11.5-14.5); White Blood Cell Count 11.7 10^3/uL (4.8-10.8)
[2024-11-02 04:56] LABS: Blood Urea Nitrogen 22 mg/dl (7-17); Carbon Dioxide 25 mmol/L (22-30); Chloride 112 mmol/L (98-107); Estimated Creatinine Clearance 40 ml/min; Glucose 109 mg/dl (70-99); Potassium 3.9 mmol/L (3.5-5.1); Sodium 138 mmol/L (135-145); eGFR > 60.00
--- NOTE | 2024-11-02 05:12 | W.PN.UPDATE ---
Update Note
Progress Note Update
AM labs, Hgb 7.6. Ordered repeat type and screen and 1 unit PRBC's to transfuse today.
--- NOTE | 2024-11-02 05:30 | PTCARENOTE ---
hgb 7.6 (previously 9.1) INSTRUCTOR DANCING notified via tiger text. type&screen ordered and sent. 1 unit PRBC ordered.
[2024-11-02] MEDS: THERAGRAN 1 TABLET PO (07:49)
[2024-11-02] MEDS: TIMOPTIC 0.5% OPHTHALMIC SOLUTION 1 DROP OPHTH ×2 (07:49→20:29)
[2024-11-02] MEDS: CARAFATE SUSPENSION 1 GM PO ×4 (07:49→20:31)
[2024-11-02] MEDS: PROTONIX 40 MG PO (07:49)
[2024-11-02] MEDS: LIPITOR 10 MG PO (07:49)
[2024-11-02] MEDS: ALPHAGAN 0.2% EYE DROPS 1 DROP OPHTH ×2 (07:50→20:29)
--- NOTE | 2024-11-02 08:25 | W.PN.HOSP.TC ---
Today's Communication/Plan
-
Give blood. NPO. GI reconsulted.
Assessment / Plan
Assessment / Plan
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
She also reports a fall in the beginning of the month with right hip fracture that was surgically repaired in [place]. She went to acute rehab following that.
A/P:
1. generalized weakness/fatigue likely 2/2 acute blood loss anemia 2/2 GI bleed
hgb 7.3 on admission from baseline 13
s/p total 3 units PRBC transfusion, Hgb went to 9.1 then today back down to 7.6
One unit of PRBC ordered
s/p EGD 10/30: noted non-bleeding large 15mm in size anterior duodenal ulcer with a visible vessel. Injected. Treated with bipolar cautery.
GI reccomended initially to cont Protonix gtt for x72hrs then BID x12 wks then daily afterwards
GI re-consult requested given hgb drop
Added carafate
iron panel acceptable, B12 and folate levels WNL
2. Hypokalemia
repleted
3. hyperlipidemia
continue simvastatin
4. Recent fall with R hip fracture s/p repair
PT eval recc home vs outpt PT
Code status: full code
DVT prophylaxis: SCDs
DW RN
Anticipated Discharge: 24 - 48 hours
Subjective/Interval History
-
Date of Service: November 02, 2024
HGb went from 9.1 to 7.6 today.
Objective Data
-
Labs:
Laboratory Results
11/02/24
04:18
WBC 11.7 H
Hgb 7.6 L
Hct 22.1 L
Plt Count 233
Sodium 138
Potassium 3.9
Chloride 112 H
Carbon Dioxide 25
BUN 22 H
Creatinine 0.7
Glucose 109 H
Calcium 9.0
Vital Signs:
Vital Signs
Temp Pulse Resp BP Pulse Ox
98.0 F 76 21 124/64 98
11/02/24 07:08 11/02/24 02:05 11/02/24 02:05 11/02/24 02:05 11/02/24 00:08
I&O
11/01/24 11/02/24 11/03/24
06:59 06:59 06:59
Intake Total 1290 / 1290
Balance 1290 / 1290
Review of Systems
-
History Source: Patient
All other systems: Reviewed and negative
Physical Exam
-
General: Well Developed, Well Nourished, No Apparent Distress, Comfortable and Conversant
HEENT: Normocephalic, Atraumatic and Moist Mucous Membranes
Respiratory: Clear to Auscultation
Cardiac: Regular Rhythm and S1/S2
GI: Soft, Nontender and Nondistended
Musculoskeletal: No Clubbing, No Cyanosis and No Edema
Skin: Warm and Dry
Neuro: Awake, Alert, Oriented and AO x 3
Psych: Calm
--- NOTE | 2024-11-02 11:11 | PTCARENOTE ---
Addendum entered by Marlena Blankenship RN 11/02/24 11:15:
This nurse also reviewed with Sully in GI lab that patient received her morning meds.
Original Note:
This nurse received call from GI lab that patient is going for endoscopy. Patient currently receiving blood transfusion; they will call for pink sheet from blood bank. Patient stated she took 2 sips of orange juice and 3 bites of puree omelet
between [id number]. This nurse informed Sully from GI lab who stated she would speak with anesthesia and call back. This nurse received call to send patient. RN accompanied patient d/t blood transfusing.
[2024-11-02] MEDS: CARAFATE SUSPENSION PO (11:15)
--- NOTE | 2024-11-02 12:23 | PTCARENOTE ---
This nurse just received report from Jonna in GI that patient's procedure was complete. She stated blood was still running; also stated she has pink sheet from blood bank. She will bring patient up to floor.
--- NOTE | 2024-11-02 13:25 | PTCARENOTE ---
Patient returned from GI lab after blood transfusion completed. She was able to walk from the stretcher to the bed with 2 person assist. She is now ordering clear liquid lunch. Protonix ordered IV at 13:00; she received po dose this morning. This
nurse spoke with pharmacist to clarify; she stated to check with physician. TT sent to Dr Bright who instructed to give.
[2024-11-02] MEDS: NSS (PRESERVATIVE FREE) 10 ML IV ×2 (13:28→20:32)
[2024-11-02] MEDS: PROTONIX IV 40 MG IV ×2 (13:29→20:31)
[2024-11-02] MEDS: MIRALAX 17 GRAMS PO (16:15)
[2024-11-02] MEDS: XALATAN OPHTHALMIC SOLUTION 1 DROP BOTH EYES (20:31)
--- NOTE | 2024-11-02 21:25 | PTCARENOTE ---
Left forearm noted to be red with trace edema where old IV site was located. VAT aware. Warm compress applied and elevated on pillow. pt updated and thankful.
[2024-11-03] VITALS (11 sets, daily range): BP systolic 90–155; BP diastolic 54–99
[2024-11-03 06:25] LABS: Blood Urea Nitrogen 14 mg/dl (7-17); Carbon Dioxide 25 mmol/L (22-30); Chloride 112 mmol/L (98-107); Estimated Creatinine Clearance 40 ml/min; eGFR > 60.00
[2024-11-03 06:30] LABS: Hemoglobin 9.7 g/dL (12.0-16.0); Mean Corp Hgb Conc. 34.6 g/dL (33.0-37.0); Mean Corpuscular Hgb 31.5 pg (27.0-31.0); Mean Corpuscular Volume 90.9 fL (81.0-99.0); Mean Platelet Volume 10.5 fL (7.4-10.4); Platelet Count 245 10^3/uL (130-400); Red Blood Cell Count 3.08 10^6/uL (4.20-5.40); Red Cell Dist. Width 15.9 % (11.5-14.5); White Blood Cell Count 10.6 10^3/uL (4.8-10.8)
[2024-11-03 06:36] LABS: Calcium 9.2 mg/dl (8.4-10.2); Glucose 104 mg/dl (70-99); Potassium 3.8 mmol/L (3.5-5.1); Sodium 136 mmol/L (135-145)
--- NOTE | 2024-11-03 07:45 | W.PN.HOSP.TC ---
Today's Communication/Plan
-
Doing well. Advance diet. If bed needed in IMU, may go to [facility].
Assessment / Plan
Assessment / Plan
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
She also reports a fall in the beginning of the month with right hip fracture that was surgically repaired in [place]. She went to acute rehab following that.
A/P:
1. generalized weakness/fatigue likely 2/2 acute blood loss anemia 2/2 GI bleed
hgb 7.3 on admission from baseline 13
s/p total 3 units PRBC transfusion, Hgb went to 9.1 then on 11/02 back down to 7.6
One unit of PRBC ordered
EGD performed 11/02 again, results:
- Non-obstructing Schatzki ring.
- Tortuous esophagus.
- Small hiatal hernia.
- A few gastric polyps.
- Oozing duodenal ulcer with a visible vessel.
Injected. Treated with bipolar cautery.
- Normal first portion of the duodenum and second portion of the duodenum.
- No specimens collected.
GI Recommendation:
- Continue present medications.
- Use Protonix (pantoprazole) 40 mg IV BID.
- clear liquids today, if rebleeds may need hemospray and OVESCO (difficult location to place clip) vs IR embolization
s/p EGD 10/30: noted non-bleeding large 15mm in size anterior duodenal ulcer with a visible vessel. Injected. Treated with bipolar cautery.
Added carafate
iron panel acceptable, B12 and folate levels WNL
OK to go to med/surge if bed needed
2. Hypokalemia
repleted
3. hyperlipidemia
continue simvastatin
4. Recent fall with R hip fracture s/p repair
PT eval recc home vs outpt PT
Code status: full code
DVT prophylaxis: SCDs
DW RN
Anticipated Discharge: 24 - 48 hours
Subjective/Interval History
-
Date of Service: November 03, 2024
Feels well this am, no pain.
Objective Data
-
Labs:
Laboratory Results
11/03/24
05:14
WBC 10.6
Hgb 9.7 L D
Hct 28.0 L
Plt Count 245
Sodium 136
Potassium 3.8
Chloride 112 H
Carbon Dioxide 25
BUN 14
Creatinine 0.7
Glucose 104 H
Calcium 9.2
Vital Signs:
Vital Signs
Temp Pulse Resp BP Pulse Ox
98.0 F 70 14 149/79 97
11/03/24 06:25 11/03/24 06:04 11/03/24 06:04 11/03/24 06:04 11/03/24 06:04
I&O
11/02/24 11/03/24 11/04/24
06:59 06:59 06:59
Intake Total 0 / 0
Balance 0 / 0
Review of Systems
-
History Source: Patient
All other systems: Reviewed and negative
Physical Exam
-
General: Well Developed, Well Nourished, No Apparent Distress, Comfortable and Conversant
HEENT: Normocephalic, Atraumatic, Moist Mucous Membranes, Nose Appears Normal and Ears Appear Normal
Respiratory: Clear to Auscultation
Cardiac: Regular Rhythm and S1/S2
GI: Soft, Nontender and Nondistended
Musculoskeletal: No Clubbing, No Cyanosis and No Edema
Skin: Warm and Dry
Neuro: Awake, Alert and Oriented
Psych: Calm
Data Reviewed
-
Labs: Labs Reviewed by me
--- NOTE | 2024-11-03 07:52 | W.PN.GI.CBS2 ---
Today's Communication / Plan
-
LRD
trend HB
Assessment / Plan
-
Pt is an 89yo with hx hypercholesterolemia, hypothyroidism,neuropathy, osteoarthritis with onset of weakness. Per ER notes noted with recent constipation with need for Miralax then frequent stools with dark color. She also had recent fall with hip
fracture with rehab stay. No return home noted with hypotension and directed to ER. On admission noted with hbg 7.3 with BUN 45. Prior to admission pt was on ASA 81mg BID and Tylenol 500mg QID. ER rectal exam with heme + melena along with
hypotension and tachycardia. No hx EGD and last colonoscopy about 20 years ago in [place] did not recall any findings. + family hx colon CA in mother and maternal GF.
10/[address] Atkins - Normal esophagus - 2 cm hiatal hernia.
- Non-bleeding large 15mm in size anterior duodenal ulcer with a visible vessel. Injected. Treated with bipolar cautery- No specimens collected.
Laboratory Tests
10/29/24 10/30/24 10/31/24
18:32 04:46 04:26
Hgb 7.3 L 8.6 L 7.5 L
10/31/24 11/01/24
20:19 03:58
Hgb 9.3 L D 9.1 L
Impression
-Duodenal ulcer seen on EGD 10/30 s/p epi and bicap repeat EGD 11/02 with epi and bicap
-symptomatic anemia
-hypotension and tachycardia on admission
-recent hip fx with NSAID use
-hypercholesterolemia
-hypothyroidism
-neuropathy
-osteoarthritis
-family hx colon CA in mother and maternal GF
Recommendations
Had repeat bleed yesterday with drop in hemoglobin and had repeat EGD 11/02 with oozing noted from the duodenal bulb ulcer with visible vessel which was retreated again with epi and cautery with gold probe
Hemoglobin today remains stable
No abdominal pain
Continue IV twice daily PPI
If HB stable tomorrow could switch to p.o. PPI twice daily and possible DC if no further bleeding
Will advance diet to low residue diet gluten-free and low lactose that she follows at home
Subjective
Subjective
Date of Service: November 03, 2024
No further bleeding since yesterday. Hemoglobin improved after transfusion of 1 unit of packed red blood cells from 7.6-9.7. She received 2 units on 10/29 and 1 unit on 10/31
Objective
Data Reviewed
Laboratory Data:
Laboratory Results
11/03/24 05:14
11/03/24 05:14
Laboratory Results
Magnesium 1.9 mg/dl (1.6-2.3) 11/01/24 03:58
Total Bilirubin 0.4 mg/dl (0.2-1.3) 10/29/24 18:32
AST 32 U/L (14-36) 10/29/24 18:32
ALT 28 U/L (0-35) 10/29/24 18:32
Alkaline Phosphatase 53 U/L (38-126) 10/29/24 18:32
Vital Signs and I&O:
Vital Signs
Temp Pulse Resp BP Pulse Ox
98.0 F 70 14 149/79 97
11/03/24 06:25 11/03/24 06:04 11/03/24 06:04 11/03/24 06:04 11/03/24 06:04
I&O
11/02/24 11/03/24 11/04/24
06:59 06:59 06:59
Intake Total 0 / 0
Balance 0 / 0
Physical Exam
Physical Exam
Cardiology: Normal Sinus Rhythm
Pulmonary: Clear
GI: Soft, Non Distended, Non Tender and Normal Bowel Sounds
[2024-11-03] MEDS: NSS (PRESERVATIVE FREE) 10 ML IV ×2 (08:11→20:36)
[2024-11-03] MEDS: LIPITOR 10 MG PO (08:11)
[2024-11-03] MEDS: PROTONIX IV 40 MG IV ×2 (08:11→20:37)
[2024-11-03] MEDS: CARAFATE SUSPENSION 1 GM PO ×4 (08:11→20:37)
[2024-11-03] MEDS: THERAGRAN 1 TABLET PO (08:11)
[2024-11-03] MEDS: ALPHAGAN 0.2% EYE DROPS 1 DROP OPHTH ×2 (08:11→20:35)
[2024-11-03] MEDS: TIMOPTIC 0.5% OPHTHALMIC SOLUTION 1 DROP OPHTH ×2 (08:11→20:35)
[2024-11-03] MEDS: TYLENOL 500 MG PO ×2 (08:12→20:37)
--- NOTE | 2024-11-03 10:52 | VATNOTE ---
PRIMARY RN REQUESTED L FA ASSESSMENT D/T PT WITH PREVIOUS INFILTRATE. SMALL RED, WARM AREA NOTED L FA. FOAM DRESSING FROM UNRELATED SKIN ISSUE BORDERS THE AREA IN QUESTION. HEAT APPLIED, ARM ELEVATED. SUGGESTED TO PRIMARY RN, ASSESSMENT FOR
FURTHER TX. PT RESTING OOB TO CHAIR. WILL CONT TO FOLLOW
--- NOTE | 2024-11-03 11:59 | PTCARENOTE ---
Assumed care of patient at beginning of this shift. Diet increased to low residue; patient tolerated. H&H this mornin.12/30. L f/a old IV site area remains red. VAT RN up to assess and placed warm compress. TT sent to Dr Colon making him aware
and asking to assess; he confirmed. Administered tylenol on initial med pass per patient request for pain 07/15; patient stated relief from pain. See worklist for full assessment and vital signs.
--- NOTE | 2024-11-03 18:50 | PTCARENOTE ---
Dr Chase notified of patient's arm as Dr Colon not up to see patient and signed off. Temp 99.2; patient did admit to tenderness at the site. TT sent to Dr Chase with picture. He also came to assess at bedside; no further orders given at this time.
[2024-11-03] MEDS: XALATAN OPHTHALMIC SOLUTION 1 DROP BOTH EYES (20:37)
[2024-11-04] VITALS (7 sets, daily range): BP systolic 91–139; BP diastolic 43–100
[2024-11-04] MEDS: TYLENOL 500 MG PO ×2 (01:00→05:35)
[2024-11-04 06:13] LABS: Blood Urea Nitrogen 12 mg/dl (7-17); Carbon Dioxide 26 mmol/L (22-30); Chloride 110 mmol/L (98-107); Estimated Creatinine Clearance 35 ml/min; Glucose 105 mg/dl (70-99); Potassium 3.5 mmol/L (3.5-5.1); Sodium 136 mmol/L (135-145); eGFR > 60.00
[2024-11-04 06:38] LABS: Hematocrit 29.6 % (37.0-47.0); Mean Corp Hgb Conc. 33.8 g/dL (33.0-37.0); Mean Corpuscular Volume 91.6 fL (81.0-99.0); Mean Platelet Volume 10.5 fL (7.4-10.4); Platelet Count 279 10^3/uL (130-400); Red Blood Cell Count 3.23 10^6/uL (4.20-5.40); Red Cell Dist. Width 15.9 % (11.5-14.5); White Blood Cell Count 8.8 10^3/uL (4.8-10.8)
--- NOTE | 2024-11-04 08:06 | W.PN.GI.CBS2 ---
Today's Communication / Plan
-
Ok for DC
Avoid NSAIDS
Assessment / Plan
-
Pt is an 89yo with hx hypercholesterolemia, hypothyroidism,neuropathy, osteoarthritis with onset of weakness. Per ER notes noted with recent constipation with need for Miralax then frequent stools with dark color. She also had recent fall with hip
fracture with rehab stay. No return home noted with hypotension and directed to ER. On admission noted with hbg 7.3 with BUN 45. Prior to admission pt was on ASA 81mg BID and Tylenol 500mg QID. ER rectal exam with heme + melena along with
hypotension and tachycardia. No hx EGD and last colonoscopy about 20 years ago in [place] did not recall any findings. + family hx colon CA in mother and maternal GF.
10/[address] Atkins - Normal esophagus - 2 cm hiatal hernia.
- Non-bleeding large 15mm in size anterior duodenal ulcer with a visible vessel. Injected. Treated with bipolar cautery- No specimens collected.
Laboratory Tests
10/29/24 10/30/24 10/31/24
18:32 04:46 04:26
Hgb 7.3 L 8.6 L 7.5 L
10/31/24 11/01/24
20:19 03:58
Hgb 9.3 L D 9.1 L
Impression
-Duodenal ulcer seen on EGD 10/30 s/p epi and bicap repeat EGD 11/02 with epi and bicap
-symptomatic anemia
-hypotension and tachycardia on admission
-recent hip fx with NSAID use
-hypercholesterolemia
-hypothyroidism
-neuropathy
-osteoarthritis
-family hx colon CA in mother and maternal GF
Recommendations
Had repeat bleed with drop in hemoglobin and had repeat EGD 11/02 with oozing noted from the duodenal bulb ulcer with visible vessel which was retreated again with epi and cautery with gold probe
Hemoglobin remains stable with no further active bleeding
No abdominal pain
Continue PPI twice daily for 2 months and then can take daily
Avoid NSAIDs, PUD most likely was related to ASA, steroid and NSAID use prior to admission
Okay to resume aspirin if needed
Okay to DC home today and follow-up in the office
Subjective
Subjective
Date of Service: November 04, 2024
Hemoglobin remained stable and no further active bleeding. No abdominal pain or nausea or vomiting
Objective
Data Reviewed
Laboratory Data:
Laboratory Results
11/04/24 05:13
11/04/24 05:13
Laboratory Results
Magnesium 1.9 mg/dl (1.6-2.3) 11/01/24 03:58
Total Bilirubin 0.4 mg/dl (0.2-1.3) 10/29/24 18:32
AST 32 U/L (14-36) 10/29/24 18:32
ALT 28 U/L (0-35) 10/29/24 18:32
Alkaline Phosphatase 53 U/L (38-126) 10/29/24 18:32
Vital Signs and I&O:
Vital Signs
Temp Pulse Resp BP Pulse Ox
97.7 F 60 13 135/68 98
11/04/24 04:30 11/04/24 06:00 11/04/24 06:00 11/04/24 06:00 11/04/24 04:28
I&O
11/03/24 11/04/24 11/05/24
06:59 06:59 06:59
Intake Total 0 / 0
Balance 0 / 0
Physical Exam
Physical Exam
Cardiology: Normal Sinus Rhythm
Pulmonary: Clear
GI: Soft, Non Distended, Non Tender and Normal Bowel Sounds
[2024-11-04] MEDS: ALPHAGAN 0.2% EYE DROPS 1 DROP OPHTH (08:19)
[2024-11-04] MEDS: TIMOPTIC 0.5% OPHTHALMIC SOLUTION 1 DROP OPHTH (08:20)
[2024-11-04] MEDS: THERAGRAN 1 TABLET PO (08:20)
[2024-11-04] MEDS: CARAFATE SUSPENSION 1 GM PO ×2 (08:20→12:01)
[2024-11-04] MEDS: LIPITOR 10 MG PO (08:20)
[2024-11-04] MEDS: NSS (PRESERVATIVE FREE) 10 ML IV (08:21)
[2024-11-04] MEDS: PROTONIX IV 40 MG IV (08:21)
--- NOTE | 2024-11-04 09:48 | W.PN.HOSP.TC ---
Today's Communication/Plan
-
Cleared by GI for discharge today
Assessment / Plan
Assessment / Plan
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
She also reports a fall in the beginning of the month with right hip fracture that was surgically repaired in [place]. She went to acute rehab following that.
A/P:
1. generalized weakness/fatigue likely 2/2 acute blood loss anemia 2/2 GI bleed
hgb 7.3 on admission from baseline 13
s/p total 4 units PRBC transfusion, hemoglobin improved to 9.7, now stable 10.0 today
EGD performed 11/02 again, results:
- Non-obstructing Schatzki ring.
- Tortuous esophagus.
- Small hiatal hernia.
- A few gastric polyps.
- Oozing duodenal ulcer with a visible vessel.
Injected. Treated with bipolar cautery.
- Normal first portion of the duodenum and second portion of the duodenum.
- No specimens collected.
GI Recommendation:
- Continue present medications.
- Use Protonix (pantoprazole) 40 mg IV BID.
- clear liquids today, if rebleeds may need hemospray and OVESCO (difficult location to place clip) vs IR embolization
s/p EGD 10/30: noted non-bleeding large 15mm in size anterior duodenal ulcer with a visible vessel. Injected. Treated with bipolar cautery.
Added carafate
iron panel acceptable, B12 and folate levels WNL
Cleared by GI for discharge on Protonix 40 mg twice a day for 12 weeks, then once a day
Patient has been counseled to avoid NSAIDs, and permanently discontinue aspirin. Follow-up with GI in the office as scheduled on 12/04, and PCP in 1 week
2. Hypokalemia
repleted and resolved
3. hyperlipidemia
continue simvastatin
4. Recent fall with R hip fracture s/p repair
PT eval recc home vs outpt PT, patient and wishes for home PT
Code status: full code
DVT prophylaxis: SCDs
Updated on phone 11/04/2024
Physical Exam
General: No acute distress
HEENT: Normocephalic, Atraumatic, EOMI, MMM
Respiratory: Clear to Auscultation bilaterally
Cardiac: Normal S1/S2, Regular Rate and Rhythm
GI: Soft, Nontender, Nondistended, Normal Bowel Sounds
Extremities: No Clubbing, Cyanosis, or Edema
Neuro: Nonfocal/Grossly Intact
Psych: Calm, Cooperative
Anticipated Discharge: Today
Subjective/Interval History
-
Date of Service: November 04, 2024
No black or bloody stools. No abdominal pain. No nausea, no vomiting. No fever, no chest pain, no shortness of breath. Patient is eager for discharge today.
Objective Data
-
Labs:
Laboratory Results
11/04/24
05:13
WBC 8.8
Hgb 10.0 L
Hct 29.6 L
Plt Count 279
Sodium 136
Potassium 3.5
Chloride 110 H
Carbon Dioxide 26
BUN 12
Creatinine 0.8
Glucose 105 H
Calcium 9.0
Vital Signs:
Vital Signs
Temp Pulse Resp BP Pulse Ox
97.7 F 60 13 135/68 98
11/04/24 04:30 11/04/24 06:00 11/04/24 06:00 11/04/24 06:00 11/04/24 04:28
I&O
11/03/24 11/04/24 11/05/24
06:59 06:59 06:59
Intake Total 0 / 0
Balance 0 / 0
--- NOTE | 2024-11-04 12:22 | CM ---
Patient with Dx acute blood loss anemia 2/2 GI bleed. Per nurse ; forgetful.
--- NOTE | 2024-11-04 12:24 | CM ---
Patient with Dx acute blood loss anemia 2/2 GI bleed. Per nurse; forgetful. PT recommends Home vs Outpatient PT. OT recommends Skilled Rehab.
Met with patient and spoke with on speaker phone while in room with patient; both agree with d/c today with resumption [facility] for SN[facility]PT/OT. IMM completed. , who works from home, says he can assist the patient at home without
additional help.
[facility] Liaison notified of d/c.
Plan home today with resumption [facility].
--- NOTE | 2024-11-04 16:16 | W.DCSUMMARY ---
Discharge Summary
Discharge Data
Date of Admission: 10/29/24
Date of Discharge: 11/04/24
-
Pending Results: No
Hospital Course
Discharge diagnosis:
Acute blood loss anemia
Duodenal ulcer bleed
Hypokalemia
Hyperlipidemia
Recent fall with right hip fracture status post repair
Consults: GI
Procedures:
11/02/2024 EGD
Impression: - Non-obstructing Schatzki ring.
- Tortuous esophagus.
- Small hiatal hernia.
- A few gastric polyps.
- Oozing duodenal ulcer with a visible vessel.
Injected. Treated with bipolar cautery.
- Normal first portion of the duodenum and second
portion of the duodenum.
- No specimens collected.
10/30/2024 EGD
Impression: - Normal esophagus.
- 2 cm hiatal hernia.
- Non-bleeding large 15mm in size anterior duodenal
ulcer with a visible vessel. Injected. Treated with
bipolar cautery.
- No specimens collected.
Hospital course:
89-year-old female with a past medical history of hyperlipidemia, glaucoma, and recent fall with right hip fracture status post total hip surgery 3 weeks ago on aspirin 81 mg twice a day for DVT prophylaxis was admitted for acute symptomatic blood
loss anemia secondary to duodenal ulcer bleeding. Patient was seen in conjunction with GI. She was treated with IV Protonix. She underwent endoscopy which showed an duodenal ulcer that was treated with bipolar cautery. Patient had recurrence of
bleeding. Patient had a second EGD that showed oozing of the duodenal ulcer with a visible vessel that was injected with bipolar cautery. Patient's bleeding resolved, and she did not have any recurrence of bleeding. GI recommends avoidance of
aspirin and NSAIDs. GI also recommends continuing Protonix 40 mg p.o. twice a day for 12 weeks, followed by 40 mg p.o. daily. GI recommends repeat EGD in the outpatient setting to ascertain healing.
Patient's hemoglobin was 7.3 upon admission. She received a total of 4 units of packed red blood cells. Patient's hemoglobin was monitored, and remained stable at 10.0 on the day of discharge.
Patient was seen conjunction with PT, who recommended home PT versus outpatient PT. Patient and opted for home PT.
Patient was medically stable and cleared by GI for discharge. She needs to follow-up with her primary care doctor in 1 week, as well as GI in the office. Patient and her have been informed that she needs to avoid all NSAIDs and aspirin.
They report understanding.
Disposition: Home with home care
Discharge planning: Required 39 minutes
Discharge Plan
-
Patient Disposition: Home with Home Care
Discharge Diagnosis/Procedures: Acute blood loss anemia secondary to duodenal ulcer
Condition: Good
Diet: Low Fat and Low Cholesterol
Activity: As tolerated
Driving Restrictions: As prior to admission
Activity Restrictions/Additional Instructions:
Please avoid all [id number] NSAID medications such as ibuprofen, naproxen, Aleve, Motrin, Advil.
These medications will cause bleeding of your ulcer.
Please follow-up with your primary care doctor in 1 week, and GI as scheduled.
Referrals:
Amelie Lomeli CRNP [[facility], Gastroenterology] - 12/04/24 11:30 am
Referral Note: Please call to reschedule if you can not keep this appointment. If your insurance requires a referral please contact your primary care physician prior to your appointment.
Kwan Lincoln MD [Family Provider] - in one week
Additional Discharge Medication Instructions: Continue protonix 40 mg twice daily for 12 weeks, then daily afterwards
Prescriptions:
New
pantoprazole [Protonix] 40 mg tablet,delayed release (DR/EC)
40 mg PO BID Qty: 60 0RF
Continued
simvastatin 10 mg tablet
10 mg PO DAILY Qty: 30 1RF
therapeutic multivitamin Tablet
1 tab PO DAILY
calcium carbonate 300 mg (750 mg) Tablet,Chewable
300 mg PO BIDPRN PRN (Reason: gas pains)
acetaminophen [Tylenol Extra Strength] 500 mg Tablet
500 mg PO QID
brimonidine-timolol [Combigan] 0.2-0.5 % Drops
1 drp BOTH EYES BID
latanoprost (PF) 0.005 % Dropperette
1 drp BOTH EYES HS
Discontinued
aspirin 81 mg tablet,chewable
81 mg PO BID
Discharge Orders:
Discharge Patient (As Directed); Ordered 11/04/24
Ordered By: Lewis Atkins
Discharge Date and Time
Discharge Date/Time: 11/04/24 13:35
Print Language: [email or web address]
== END 2024-11-04 13:35 | disposition home health service (06) | DRG 378 ==
LOC: IMU 22:11
PROVIDERS: Internal Medicine; Internal Medicine Gastroenterology; Nurse Practitioner Family; Physician Assistant; ADMITTING PHYSICIAN Internal Medicine; ATTENDING PHYSICIAN Family Medicine; CONSULT PHYSICIAN Internal Medicine Gastroenterology; EMERGENCY PHYSICIAN Emergency Medicine; FAMILY PHYSICIAN Internal Medicine Geriatric Medicine
PROC: 30233N1 Transfusion of Nonautologous Red Blood Cells into Peripheral Vein, Percutaneous Approach (ICD-10-PCS; 2024-10-29)
PROC: 0W3P8ZZ Control Bleeding in Gastrointestinal Tract, Via Natural or Artificial Opening Endoscopic (ICD-10-PCS; 2024-10-30)
DX: K26.0 Acute duodenal ulcer with hemorrhage (principal); D62 Acute posthemorrhagic anemia; Z11.52 Encounter for screening for COVID-19; K44.9 Diaphragmatic hernia without obstruction or gangrene; K22.2 Esophageal obstruction; K31.7 Polyp of stomach and duodenum; E78.00 Pure hypercholesterolemia, unspecified; E87.6 Hypokalemia
CPT/HCPCS: 80048; 80053; 81003; 82607; 82728; 82746; 83540; 83550; 83735; 85014; 85018; 85025; 85027; 86850; 86900; 86901; 86920; 87070; 87502; 87811; 93005; 96365; 96375; 97116; 97163; 97167; 97530; 99291; P9016

== ENCOUNTER → 2024-12-02 16:14 | Outpatient (REF) | payer MEDICARE, BC, SELFPAY ==
[2024-12-02 17:12] LABS: % Basophils 0.8 % (0-2); % Eosinophils 3.5 % (0-6); % Immature Granulocytes 0.3 % (0-0.5); % Lymphocytes 19.7 % (20.5-51.1); % Monocytes 13.7 % (1.7-9.3); Absolute Basophils 0.1 10^3/uL (0-0.2); Absolute Eosinophils 0.3 10^3/uL (0-0.7); Absolute Lymphocytes 1.7 10^3/uL (1.2-3.4); Absolute Monocytes 1.2 10^3/uL (0.1-0.6); Absolute Neutrophils 5.4 10^3/uL (1.4-6.5); Hematocrit 34.4 % (37.0-47.0); Mean Corpuscular Hgb 30.8 pg (27.0-31.0); Mean Corpuscular Volume 96.4 fL (81.0-99.0); Mean Platelet Volume 10.5 fL (7.4-10.4); Nucleated Red Blood Cells % 0 %; Platelet Count 288 10^3/uL (130-400); Red Blood Cell Count 3.57 10^6/uL (4.20-5.40); Red Cell Dist. Width 14.1 % (11.5-14.5); White Blood Cell Count 8.8 10^3/uL (4.8-10.8)
== END ==
LOC: REG 16:14
PROVIDERS: ATTENDING PHYSICIAN Nurse Practitioner Adult Health; FAMILY PHYSICIAN Internal Medicine Geriatric Medicine
DX: D64.9 Anemia, unspecified (principal)
CPT/HCPCS: 36415; 85025

== ENCOUNTER → 2025-01-20 11:39 | Outpatient (REF) | payer MEDICARE, BC, SELFPAY ==
[2025-01-20 12:50] LABS: Hematocrit 37.3 % (37.0-47.0); Hemoglobin 12.7 g/dL (12.0-16.0); Mean Corp Hgb Conc. 34.0 g/dL (33.0-37.0); Mean Corpuscular Volume 96.4 fL (81.0-99.0); Nucleated Red Blood Cells % 0 %; Platelet Count 279 10^3/uL (130-400); Red Cell Dist. Width 13.1 % (11.5-14.5)
[2025-01-20 12:55] LABS: Urine Character Clear (Clear)
[2025-01-20 13:30] LABS: ALT (SGPT) 19 U/L (0-35); AST (SGOT) 24 U/L (14-36); Albumin 4.2 g/dl (3.5-5.0); Alkaline Phosphatase 86 U/L (38-126); Blood Urea Nitrogen 12 mg/dl (7-17); Calcium 10.3 mg/dl (8.4-10.2); Carbon Dioxide 31 mmol/L (22-30); Chloride 104 mmol/L (98-107); Glucose 92 mg/dl (70-99); HDL Cholesterol 81 mg/dl; LDL Cholesterol, Calculated 92 mg/dl; Potassium 4.6 mmol/L (3.5-5.1); Sodium 138 mmol/L (135-145); Total Protein 6.9 g/dl (6.3-8.2); Very Low Density Lipoprotein 21 mg/dl (0-30); eGFR > 60.00
[2025-01-20 13:44] LABS: Vitamin D, 25-OH*** 73.0 ng/mL (30-80)
== END ==
LOC: REG 11:39
PROVIDERS: ATTENDING PHYSICIAN Internal Medicine Geriatric Medicine; REFERRING PHYSICIAN Internal Medicine Endocrinology, Diabetes & Metabolism
DX: E78.2 Mixed hyperlipidemia (principal); E55.9 Vitamin D deficiency, unspecified; E21.0 Primary hyperparathyroidism
CPT/HCPCS: 36415; 80053; 80061; 81003; 82306; 83970; 85025

== ENCOUNTER → 2025-01-29 15:41 | Outpatient (REF) | payer MEDICARE, BC, SELFPAY ==
[2025-01-29 16:36] LABS: Calcium 10.8 mg/dl (8.4-10.2)
== END ==
LOC: REG 15:41
PROVIDERS: ATTENDING PHYSICIAN Internal Medicine Geriatric Medicine
DX: E83.52 Hypercalcemia (principal)
CPT/HCPCS: 36415; 82330; 83970

== ENCOUNTER 2025-02-05 06:25 | Day surgery (SDC) | payer MEDICARE, BC, SELFPAY | END 2025-02-05 12:10 | disposition home or self-care (01) | LOC: GI 06:25 | PROVIDERS: ATTENDING PHYSICIAN Internal Medicine Gastroenterology | DX: K29.70 Gastritis, unspecified, without bleeding (principal); K26.4 Chronic or unspecified duodenal ulcer with hemorrhage; K44.9 Diaphragmatic hernia without obstruction or gangrene; K31.89 Other diseases of stomach and duodenum | CPT/HCPCS: 43239; 88305; 88342 ==

== ENCOUNTER → 2025-03-14 11:42 | Outpatient (REF) | payer MEDICARE, OTHER, SELFPAY ==
[2025-03-14 12:32] LABS: Hematocrit 40.1 % (37.0-47.0); Hemoglobin 13.7 g/dL (12.0-16.0); Mean Corp Hgb Conc. 34.2 g/dL (33.0-37.0); Mean Corpuscular Volume 92.6 fL (81.0-99.0); Nucleated Red Blood Cells % 0 %; Platelet Count 247 10^3/uL (130-400); Red Cell Dist. Width 15.3 % (11.5-14.5)
[2025-03-14 13:35] LABS: Vitamin D, 25-OH*** 63.2 ng/mL (30-80)
[2025-03-14 13:44] LABS: ALT (SGPT) 23 U/L (0-35); AST (SGOT) 32 U/L (14-36); Albumin 4.9 g/dl (3.5-5.0); Alkaline Phosphatase 85 U/L (38-126); Blood Urea Nitrogen 14 mg/dl (7-17); Calcium 9.7 mg/dl (8.4-10.2); Carbon Dioxide 25 mmol/L (22-30); Chloride 104 mmol/L (98-107); Glucose 96 mg/dl (70-99); Potassium 4.9 mmol/L (3.5-5.1); Sodium 137 mmol/L (135-145); Total Protein 7.9 g/dl (6.3-8.2); Very Low Density Lipoprotein 20 mg/dl (0-30); eGFR > 60.00
[2025-03-14 13:53] LABS: Ferritin 14.4 ng/ml (11.1-264.0); HDL Cholesterol 122 mg/dl; LDL Cholesterol, Calculated 120 mg/dl
[2025-03-14 13:54] LABS: Total Iron Binding Capacity 372 ug/dl (265-497)
== END ==
LOC: REG 11:42
PROVIDERS: ATTENDING PHYSICIAN Internal Medicine Geriatric Medicine
DX: N18.31 Chronic kidney disease, stage 3a (principal); E78.2 Mixed hyperlipidemia; E21.3 Hyperparathyroidism, unspecified; E55.9 Vitamin D deficiency, unspecified; M81.0 Age-related osteoporosis without current pathological fracture; Z13.89 Encounter for screening for other disorder; S72.001D Fracture of unspecified part of neck of right femur, subsequent encounter for closed fracture with routine healing; Z87.81 Personal history of (healed) traumatic fracture; K25.0 Acute gastric ulcer with hemorrhage
CPT/HCPCS: 36415; 80053; 80061; 82306; 82330; 82728; 83550; 83970; 85025